=== PATIENT | male | born 2000 | race African-American/Black ===

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

== ENCOUNTER 2022-12-05 18:29 | Emergency (ER) | payer OTHER ==
[2022-12-05] MEDS ORDERED: FAMOTIDINE 20 MG/2 ML VIAL IV STA (18:33)
[2022-12-05] MEDS ORDERED: methylPREDNISolone SOD SUCCI 125 MG/2 ML VIAL IV STA (18:33)
--- NOTE | 2022-12-05 18:36 | ED ---
General Adult HPI - General Chief complaint: Allergic Reaction Stated complaint: Allergic Reaction Time Seen by Provider: 12/05/22 18:33 Source: patient, EMS, RN notes reviewed Mode of arrival: EMS Limitations: no limitations - History of Present Illness Initial comments: Patient is a pleasant 22-year-old male presenting to the emergency department with concern for ALLERGIC reaction. Patient questions if it is something he has a however is unable to identify any new exposures. Patient denies any new medications. Patient feels his tongue is swollen. Patient arrives by ambulance. EMS did provide 50 mg of Benadryl prior to arrival. - Related Data Home Medications Medication Instructions Recorded Confirmed No Known Home Medications 12/05/22 12/05/22 Allergies Allergy/AdvReac Type Severity Reaction Status Date / Time aripiprazole [From Abilify] Allergy Unknown Verified 12/05/22 19:22 clonidine Allergy Swelling Verified 12/05/22 19:22 olanzapine [From Zyprexa] Allergy Unknown Verified 12/05/22 19:22 Review of Systems ROS Statement: Those systems with pertinent positive or pertinent negative responses have been documented in the HPI. ROS Other: All systems not noted in ROS Statement are negative. Constitutional: Denies: fever Eyes: Denies: as per HPI ENT: Reports: other (Patient feels his tongue is swollen). Denies: ear pain Respiratory: Denies: dyspnea Cardiovascular: Denies: chest pain Endocrine: Denies: fatigue Gastrointestinal: Denies: abdominal pain Genitourinary: Denies: dysuria Musculoskeletal: Denies: back pain Skin: Denies: rash Past Medical History Past Medical History: No Reported History History of Any Multi-Drug Resistant Organisms: None Reported Past Surgical History: No Surgical Hx Reported Past Psychological History: ADD/ADHD, Anxiety Smoking Status: Never smoker Past Alcohol Use History: None Reported Past Drug Use History: None Reported General Exam Limitations: no limitations General appearance: alert Head exam: Present: normocephalic Eye exam: Present: normal appearance ENT exam: Present: other (Patient protects his tongue out of his mouth. Patient was able to put his tongue back inside his mouth and talk like normal. No obvious edema. No edema of the eyes or lips.) Neck exam: Present: normal inspection Respiratory exam: Present: normal lung sounds bilaterally. Absent: respiratory distress, wheezes Cardiovascular Exam: Present: regular rate, normal rhythm GI/Abdominal exam: Present: soft. Absent: tenderness Extremities exam: Present: normal inspection Neurological exam: Present: alert Psychiatric exam: Present: normal affect, normal mood Skin exam: Present: normal color Course Vital Signs 12/05/22 12/05/22 12/05/22 18:30 18:32 19:16 Pulse Rate 73 78 Respiratory 18 20 16 Rate Blood Pressure 142/91 115/72 O2 Sat by Pulse 99 99 Oximetry - Reevaluation(s) Reevaluation #1: 12/05/22 18:45 Patient reevaluated and symptom-free. No uvula edema. Medical Decision Making - Medical Decision Making Was pt. sent in by a medical professional or institution (, [facility], FRONT OFFICE JAVA DEVELOPER, urgent ca re, hospital, or skilled nursing...) When possible be specific @ -No Did you speak to anyone other than the patient for history (EMS, parent, family, police, friend...)? What history was obtained from this source @ -Patient arrives by EMS and helps provide history including medications provided Did you review nursing and triage notes (agree or disagree)? Why? @ -I reviewed and agree with nursing and triage notes Were old charts reviewed (outside hosp., previous admission, EMS record, old EKG, old radiological studies, urgent care reports/EKG's, skilled nursing records)? Report findings @ -No old charts were reviewed Differential Diagnosis (chest pain, altered mental status, abdominal pain women, abdominal pain men, vaginal bleeding, weakness, fever, dyspnea, syncope, headache, dizziness, GI bleed, back pain, seizure, CVA, palpatations, mental health)? @ -not applicable EKG interpreted by me (3pts min.). @ -As above X-rays interpreted by me (1pt min.). @ -None done CT interpreted by me (1pt min.). @ -None done U/S interpreted by me (1pt. min.). @ -None done What testing was considered but not performed or refused? (CT, X-rays, U/S, labs)? Why? @ -None What meds were considered but not given or refused? Why? @ -None Did you discuss the management of the patient with other professionals (professionals i.e. [facility] Willoughby, FRONT OFFICE JAVA DEVELOPER, lab, RT, psych nurse, social media executive, heat treating bluer, teacher, chief security and safety officer, returned case inspector)? Give summary @ -No Was smoking cessation discussed for >3mins.? @ -No Was critical care preformed (if so, how long)? @ -No Were there social determinants of health that impacted care today? How? (Homelessness, low income, unemployed, alcoholism, drug addiction, transportation, low edu. Level, literacy, decrease access to med. care, penitentiary, rehab)? @ -No Was there de-escalation of care discussed even if they declined (Discuss DNR or withdrawal of care, Hospice)? DNR status @ -No What co-morbidities impacted this encounter? (DM, HTN, Smoking, COPD, CAD, Cancer, CVA, ARF, Chemo, Hep., AIDS, mental health diagnosis, sleep apnea, morbid obesity)? @ -None Was patient admitted / discharged? Hospital course, mention meds given and r oute, prescriptions, significant lab abnormalities, going to OR and other pertinent info. @ -Patient presents with concern for ALLERGIC reaction. Patient has an odd presentation and appears able to overcome his symptoms. Patient symptoms resolved within minutes of receiving medication which is also not typical of ALLERGIC reaction. Patient remained symptom-free when reevaluated twice. Patient is safe for discharge and recommended to keep up with Benadryl for the next 5 days. Undiagnosed new problem with uncertain prognosis? @ -No Drug Therapy requiring intensive monitoring for toxicity (Heparin, Nitro, Insulin, Cardizem)? @ -No Were any procedures done? @ -No Diagnosis/symptom? @ -ALLERGIC reaction Acute, or Chronic, or Acute on Chronic? @ -Acute Uncomplicated (without systemic symptoms) or Complicated (systemic symptoms)? @ -default Side effects of treatment? @ -No Exacerbation, Progression, or Severe Exacerbation? @ -No Poses a threat to life or bodily function? How? (Chest pain, [place], AR, pneumonia, PE, COPD, DKA, ARF, appy, cholecystitis, CVA, Diverticulitis, Homicidal, Suicidal, threat to staff... and all critical care pts) @ -No Disposition Clinical Impression: Allergic reaction Disposition: HOME SELF-CARE Condition: Stable Instructions (If sedation given, give patient instructions): Allergies (ED) Additional Instructions: Continue [id number] Benadryl for the next 5 days. Please do follow-up with your primary care physician in the next day or 2 for recheck. Return for difficulty breathing, swelling of the face or lips or tongue or throat, worsening symptoms or any other concerns. Is patient prescribed a controlled substance at d/c from ED?: No Referrals: Adolfo Robles MD [STAFF PHYSICIAN] - 1-2 days Time of Disposition: 19:33
[2022-12-05 19:17] VITALS: RESP 16
[2022-12-05 19:39] VITALS: BP 112/78; PULSE 76; TEMP 98.1
== END 2022-12-05 19:39 | disposition home or self-care (01) ==
LOC: EC 18:29
DX: K14.3 Hypertrophy of tongue papillae (principal); T45.0X5A Adverse effect of antiallergic and antiemetic drugs, initial encounter; Z88.8 Allergy status to other drugs, medicaments and biological substances; Z86.59 Personal history of other mental and behavioral disorders
CPT/HCPCS: 99284; 96374; 96375; J2930

== ENCOUNTER 2024-01-27 02:58 | Emergency (ER) | payer OTHER ==
[2024-01-27 03:03] VITALS: RESP 18
[2024-01-27] MEDS: IBUPROFEN 600 MG TAB PO STA (04:30)
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
--- NOTE | 2024-01-27 05:11 | CT ---
EXAM: CT Head and Maxillofacial Without Intravenous Contrast CLINICAL HISTORY: ITS.REASON CT Reason: mandible pain TECHNIQUE: Axial computed tomography images of the head/brain and face without intravenous contrast. CTDI is 45 mGy and DLP is 1341 mGy-cm. This CT exam was performed using one or more of the following dose reduction techniques: automated exposure control, adjustment of the mA and/or kV according to patient size, and/or use of iterative reconstruction technique. COMPARISON: No relevant prior studies available. FINDINGS: Bones/joints: Age indeterminate left nasal bone fracture. Soft tissues: No acute findings. Sinuses: Maxillary sinus air-fluid levels. Mastoid air cells: No mastoid effusion. Orbits: Unremarkable. IMPRESSION: 1. Age indeterminate left nasal bone fracture. 2. Mandible intact. 3. Maxillary sinus air-fluid levels.
--- NOTE | 2024-01-27 05:11 | CT ---
EXAM: CT Head Without Intravenous Contrast CLINICAL HISTORY: ITS.REASON CT Reason: mandible pain TECHNIQUE: Axial computed tomography images of the head/brain without intravenous contrast. CTDI is 45.2 mGy and DLP is 1341 mGy-cm. This CT exam was performed using one or more of the following dose reduction techniques: automated exposure control, adjustment of the mA and/or kV according to patient size, and/or use of iterative reconstruction technique. COMPARISON: No relevant prior studies available. FINDINGS: Brain: No hemorrhage or mass effect. Ventricles: No hydrocephalus. Bones/joints: Age indeterminate left nasal bone fracture. Soft tissues: Unremarkable. IMPRESSION: No acute hemorrhage, hydrocephalus, or mass effect. Age indeterminate left nasal bone fracture.
[2024-01-27 05:50] VITALS: BP 121/73; PULSE 89; TEMP 98.1
== END 2024-01-27 05:50 | disposition home or self-care (01) ==
LOC: EC 02:58
DX: S02.2XXA Fracture of nasal bones, initial encounter for closed fracture (principal); F17.200 Nicotine dependence, unspecified, uncomplicated; Z88.8 Allergy status to other drugs, medicaments and biological substances; Y04.0XXA Assault by unarmed brawl or fight, initial encounter
CPT/HCPCS: 70450; 70486; 99285

== ENCOUNTER 2024-02-13 23:02 | Emergency (ER) | payer OTHER ==
[2024-02-13] MEDS ORDERED: predniSONE 20 MG TAB ONE (23:47)
== END 2024-02-14 15:25 | disposition home or self-care (01) ==
LOC: EC 23:02
DX: L29.9 Pruritus, unspecified (principal)
CPT/HCPCS: 99283

== ENCOUNTER 2024-09-10 02:19 | Emergency (ER) | payer OTHER ==
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
[2024-09-10 03:15] VITALS: RESP 18
--- NOTE | 2024-09-10 04:28 | XR ---
EXAM: XR Left Ankle Complete, 3 or More Views CLINICAL HISTORY: ITS.REASON XR Reason: pain TECHNIQUE: Frontal, lateral and oblique views of the left ankle. COMPARISON: Left ankle radiographs on 08/02/2024 FINDINGS: Bones/joints: No displaced fracture or dislocation identified. Ankle mortise is intact. Probable small bone island in the distal left tibia. Soft tissues: Soft tissue swelling. No radiopaque foreign body identified. IMPRESSION: No displaced fracture or dislocation identified.
[2024-09-10 06:43] VITALS: BP 109/66; PULSE 62; TEMP 97.9
== END 2024-09-10 07:05 | disposition home or self-care (01) ==
LOC: EC 02:19
DX: S93.402A Sprain of unspecified ligament of left ankle, initial encounter (principal); F17.200 Nicotine dependence, unspecified, uncomplicated; Z88.8 Allergy status to other drugs, medicaments and biological substances; X50.9XXA Other and unspecified overexertion or strenuous movements or postures, initial encounter; Y92.480 Sidewalk as the place of occurrence of the external cause
CPT/HCPCS: 99283

== ENCOUNTER 2024-10-24 00:04 | Inpatient (IN) | payer MEDICAID, OTHER ==
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
[2024-10-24] MEDS: NICOTINE 14MG/24HR PATCH TRANSDERM STA (05:08)
[2024-10-24 06:41] LABS: Amphetamine Screen,Urine Not Detected (NotDetected); Barbiturate Screen,Urine Not Detected (NotDetected); Benzodiazepines Screen,Urine Not Detected (NotDetected); Cocaine Screen,Urine Not Detected (NotDetected); Methadone Screen, Urine Not Detected (NotDetected); Opiate Screen,Urine Not Detected (NotDetected); Oxycodone Screen, Urine Not Detected (NotDetected); Phencyclidine Screen,Urine Not Detected (NotDetected); Tricyclic Antidepressant,Urine Not Detected (NotDetected); Urn Cannabinoid Scrn Detected (NotDetected)
[2024-10-24] MEDS ORDERED: ACETAMINOPHEN TAB 325 MG TAB PO PRN (06:46)
[2024-10-24] MEDS ORDERED: haloperidoL 5 MG TAB PO PRN (06:46)
[2024-10-24] MEDS ORDERED: MAGNESIUM HYDROXIDE 2,400 MG/30 ML CUP PO PRN (06:46)
[2024-10-24] MEDS ORDERED: HALOPERIDOL LACTATE 5 MG/ML 1 ML VIAL IM PRN (06:46)
[2024-10-24] MEDS ORDERED: LORazepam 2 MG/ML INJ IM PRN (06:46)
[2024-10-24] MEDS: NICOTINE 14MG/24HR PATCH TRANSDERM SCH (08:27)
[2024-10-24] MEDS: LORazepam 1 MG TAB PO PRN (08:28)
[2024-10-24] MEDS: MAG HYDROX/AL HYDROX/SIMETH 355 ML BOTTLE PO PRN (10:47)
--- NOTE | 2024-10-24 11:52 | P.HP ---
Psychiatric H&P - . H&P Date: 10/24/24 History & Physical: Allergies Allergy/AdvReac Type Severity Reaction Status Date / Time aripiprazole from Abilify Allergy Dystonia Verified 10/24/24 06:29 asenapine from Saphris Allergy Anaphylaxis Verified 10/24/24 06:28 clonidine Allergy Swelling Verified 10/24/24 00:16 olanzapine from Zyprexa AdvReac Weight Gain Verified 10/24/24 06:28 Vital Signs Temp 98.1 F 10/24/24 08:31 Pulse 102 H 10/24/24 08:31 Resp 16 10/24/24 08:31 BP 132/75 10/24/24 08:31 Pulse Ox 95 10/24/24 08:31 FiO2 Intake & Output 10/23/24 10/24/24 10/24/24 18:59 06:59 18:59 Weight 90.718 kg 82 kg Laboratory Last Values Urine Opiates Screen Not Detected (NotDetected) 10/24/24 05:17 Ur Oxycodone Screen Not Detected (NotDetected) 10/24/24 05:17 Urine Methadone Screen Not Detected (NotDetected) 10/24/24 05:17 Ur Barbiturates Screen Not Detected (NotDetected) 10/24/24 05:17 U Tricyclic Antidepress Not Detected (NotDetected) 10/24/24 05:17 Ur Phencyclidine Scrn Not Detected (NotDetected) 10/24/24 05:17 Ur Amphetamines Screen Not Detected (NotDetected) 10/24/24 05:17 U Methamphetamines Scrn Not Detected (NotDetected) 10/24/24 05:17 U Benzodiazepines Scrn Not Detected (NotDetected) 10/24/24 05:17 Urine Cocaine Screen Not Detected (NotDetected) 10/24/24 05:17 U Marijuana (THC) Screen Detected (NotDetected) H 10/24/24 05:17 SARS-CoV-2 (PCR) Not Detected (Not Detectd) 10/24/24 03:24 10/24/24 11:45 IDENTIFYING DATA: Patient is a 24 yo -Banglades[place] male, currently homeless single has no kids unemployed HPI: Patient presented to the hospital yesterday was evaluated by EPS and as per note "pt was attempting to elope, was refusing to answer abstract writer's questions and would reply "why", "let me go". Patient was restrained at approx 0200. Tetryl Blender Operator attempted to assess patient again while pt was still in restraints. Pt brought in by police on petition. Petitiont states "Leonard was found walking in the street after walking inside a strangers house at [address] who called. Leonard said he was seeing 'light' and said his brain was bleeding. When asking Leonard questions he would sit there with a blank stare on his face. Pt is guarded and appears to be thought blocking at times with a slow to respond at certain times. Pt did give permission for the abstract writer to contact pt mother. Tetryl Blender Operator spoke with pt mother Aaliyah. Pt mother states she has not seen him recently and they do not have much of a relationship. Pt mother states he is homeless, and has no motivation to do good. Pt mother states pt [facility] [place] [facility] a child and at times had a court collections officer through [facility]. Pt did admit to abstract writer he sees "my girls' shadow". During assessments pt has what appears involuntary movement with mouth and tongue clicking. 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 Pt is closed with [facility] with last visit in December 2022. Unable to verify if pt is SI,HI, or delusional thought process at pt refusing to speak to abstract writer." Patient was seen wandering the halls responding to internal stimuli. He was agreeable to speak to abstract writer briefly. He was mainly illogical and his responses was a poor historian. Claims that he was "seeing things" and describes seeing "different shapes all over the place". Claims that he is picked up that by the police and he does not know why. He believes that he does not need treatment was fairly superficial, denies any issues with anxiety depression. He only answered some questions, states that he is homeless and he has been through mental health treatment in the past, is not taking any current medications at this time. He was attempting to elope yesterday from the ER, was aggressive with a patient on the unit this morning. Claims that he is sleeping well, appetite is fair. Patient denies any suicidal or homicidal ideations intent or plan. At this time patient denies any auditory or visual hallucinations. Admits to using marijuana and cigarettes. Denies any other recreational drug use PAST PSYCHIATRIC HISTORY: Patient has a history of psychosis and other mental health concern. Patient denies being on any psychiatric medications. Claims that he was admitted to [facility] several times when he was a child. Patient denies any psychiatric outpatient follow-up. Patient is closed at [facility]. He was last seen in December [address] Garcia, noted to have ADHD and generalized anxiety disorder patient denies any history of suicide attempts in the past. PMH: as per ER note ALLERGIES: as per EMR CHEMICAL DEPENDENCY HISTORY: as per HPI FAMILY PSYCHIATRIC/SUBSTANCE USE HISTORY: Denies SOCIAL HISTORY: Patient was born and raised locally, gave very vague history about his upbringing, he is currently homeless has no kids unemployed. Denied any legal issues MENTAL STATUS EXAM: General Appearance: Patient appears to be short, mildly overweight, has dreaded hair, wearing hospital gown, stated age is alert, responding to internal stimuli, minimally cooperative. Patient appears to have poor hygiene and grooming. Behavior: Patient is seated without any agitated behavior. Responding to internal stimuli, minimally cooperative Speech: Patient's speech is fluent and nonpressured. [place] Mood/Affect: Patient reports their mood is "okay", affect is congruent and constricted. Suicidality/Homicidality: Patient denies having any homicidal ideation intent or plan. Denies any suicidal ideations intent or plan Perceptions: Patient denies any visual hallucinations and denies any auditory hallucinations Though content/process: Thought processes illogical, loose associations, poor insight does not believe he needs help or treatment Memory and concentration: AOX3, grossly intact for the purposes of this session. Can spell "WORLD" backwards Judgment and insight: Poor/impulsive STRENGTHS/WEAKNESSES: strength is that patient is resilient. Weakness is that patient has poor judgment and is impulsive and is currently homeless INTELLECT: Average IMPRESSIONS: Psychosis unspecified, rule out substance-induced psychotic disorder versus schizophrenia versus schizoaffective disorder Cannabis use disorder Homelessness Nicotine dependence PLAN: -Patient is admitted under voluntary status to MHU for stabilization of psychiatric symptoms and safety. Patient has not signed adult voluntary form and has not signed medication consent and is placed in patient's chart. A second certification was completed and along with petition will be filed for court. -Medications : Invega 3 mg p.o. daily for mood stabilization/psychosis, trazodone 50 mg nightly for insomnia/mood. -Ativan and Haldol PRN for agitation/aggression Will offer patient subtance use rehab once patient clears more psychiatrically -Patient was informed of the risks, benefits and side effects of the medications . Patient did not signed med consent form and was placed in chart. Patient was offered medication information and declined it -Internal Medicine consult to perform medical evaluation and physical. -NRT -nicotine patch -SW on board for discharge planning. Encourage patient to participate in groups to work on coping skills. Will await deferral and court date.
[2024-10-24] MEDS: PALIPERIDONE 3 MG TAB.ER.24 PO SCH (12:08)
[2024-10-24] MEDS: NICOTINE GUM (POLACRILEX) 2 MG GUM BUCCAL PRN (15:29)
[2024-10-24] MEDS: traZODone HCL 50 MG TAB PO SCH (20:38)
[2024-10-25 10:09] LABS: Basophils # (A) 0.01 10*3/uL (0.00-0.10); Basophils % (A) 0.2 %; Eosinophils # (A) 0.06 10*3/uL (0.04-0.35); Eosinophils % (A) 1.1 %; HCT 45.2 % (39.6-50.0); HGB 15.5 g/dL (13.0-17.0); Lymphocytes % (A) 34.3 %; MCH 29.9 pg (27.0-32.0); MCHC 34.3 g/dL (32.0-37.0); MCV 87.1 fL (80.0-97.0); Mean Platelet Volume 9.2 fL (9.5-12.2); Monocytes # (A) 0.55 10*3/uL (0.20-1.00); Monocytes % (A) 10.5 %; Neutrophils # (A) 2.82 10*3/uL (1.80-7.70); Neutrophils % (A) 53.7 %; Platelet Count 187 10*3/uL (140-440); RBC 5.19 10*6/uL (4.40-5.60); RDW 12.6 % (11.5-14.5); WBC 5.25 10*3/uL (4.50-10.00)
[2024-10-25 10:24] LABS: ALT 39 U/L (4-49); AST 35 U/L (17-59); African American GFR (CKD) >90 (>60 ml/min/1.73 sqM); Albumin 4.3 g/dL (3.5-5.0); Alkaline Phosphatase 50 U/L (38-126); Anion Gap 10 mmol/L; Blood Urea Nitrogen 11 mg/dL (9-20); Calcium 9.6 mg/dL (8.4-10.2); Carbon Dioxide 27 mmol/L (22-30); Chloride 102 mmol/L (98-107); Glucose 97 mg/dL (74-99); Non-African American GFR(CKD) >90 (>60 ml/min/1.73 sqM); Sodium 139 mmol/L (137-145); Total Bilirubin 0.4 mg/dL (0.2-1.3); Total Protein 6.8 g/dL (6.3-8.2)
--- NOTE | 2024-10-25 11:25 | P.PN ---
Progress Note - Text Progress Note Date: 10/25/24 Interval history: Patient was seen today for psychiatric follow-up. He was laying in bed today, appears to be tired. Has been taking his medications. Claims that he slept well last night. Has not been going to many groups. Continues to be fairly concrete, less responding to internal stimuli today, less bizarre. Not endorsing any paranoia today. Claims that he has been eating well, not reporting any other side effects. Was fairly focused on discharge continues to have very poor insight poor judgment. Denying any auditory or visual hallucinations denies any suicidal homicidal ideations intent or plan. MENTAL STATUS EXAM: General Appearance: Patient appears to be short, mildly overweight, has dreaded hair, stated age is alert, less responding to internal stimuli, more cooperative today. Patient appears to have mildly improving hygiene and grooming. Behavior: Patient is laying in bed without any agitated behavior. Less responding to internal stimuli. More cooperative today Speech: Patient's speech is fluent and nonpressured. [place], improving mildly Mood/Affect: Patient reports their mood is "fine", affect is congruent and constricted. Suicidality/Homicidality: Patient denies having any homicidal ideation intent or plan. Denies any suicidal ideations intent or plan Perceptions: Patient denies any visual hallucinations and denies any auditory hallucinations Though content/process: Thought processes illogical, more goal oriented today. Fairly superficial insight. No paranoia today. Focused on discharge Memory and concentration: AOX3, grossly intact for the purposes of this session Judgment and insight: Poor, improving mildly IMPRESSIONS: Psychosis unspecified, rule out substance-induced psychotic disorder versus schizophrenia versus schizoaffective disorder Cannabis use disorder Homelessness Nicotine dependence PLAN: -Patient is admitted under voluntary status to MHU for stabilization of psychiatric symptoms and safety. Patient has not signed adult voluntary form and has not signed medication consent and is placed in patient's chart -Medications : Change Invega 3 mg p.o. nightly for mood stabilization/psychosis, trazodone 50 mg nightly for insomnia/mood. -Ativan and Haldol PRN for agitation/aggression Patient is declining rehab at this time. -NRT -nicotine patch -SW on board for discharge planning. Encourage patient to participate in groups to work on coping skills. Will await deferral and court date.
[2024-10-25 15:36] LABS: Chol/HDL Ratio 4.76 Ratio; LDL Cholesterol,Calculated 113.7 mg/dL (0.0-131.0)
--- NOTE | 2024-10-26 05:25 | P.MDCNMH ---
History of Present Illness H&P Date: 10/26/24 24 year old male brought in by police due to odd behavior as he was walking the streets asking for ambulance, he admitted later to using drugs he denies any fever, chills, cough, sore throat, chest pain , trouble breathing , nausea , vomiting, abd pain , changes in urinary or bowel habits. he denies smoking and alcohol he feels better and asking when he can leave review of systems Pertinent positives as noted in HPI. All other systems were reviewed and are negative on exam Constitutional: No acute distress, conversant, pleasant Eyes: Anicteric sclerae, moist conjunctiva, Pupils equal round reactive to light ENMT: NC/AT Oropharynx clear, no erythema, or exudates Lungs: Clear to auscultation Clear to percussion Normal respiratory effort, no accessory muscle use Cardiovascular: Heart regular in rate and rhythm, No murmurs, gallops, or rubs No peripheral edema Abdominal: Soft Nontender, no guarding, rebound or rigidity Abdomen moving with respiration Normoactive bowel sounds Extremities: No digital cyanosis No clubbing Pedal pulses intact and symmetrical Radial pulses intact and symmetrical No calf tenderness Psychiatric: Alert and oriented to person, place and time Appropriate affect fair judgement Neuro Muscles Strength 5/5 in all 4 extremities Sensation to light touch grossly present throughout Cranial nerves II-XII grossly intact Past Medical History Past Medical History: No Reported History History of Any Multi-Drug Resistant Organisms: None Reported Past Surgical History: No Surgical Hx Reported Past Psychological History: ADD/ADHD, Anxiety Smoking Status: Vaper Past Alcohol Use History: None Reported Past Drug Use History: None Reported Medications and Allergies Home Medications Medication Instructions Recorded Confirmed Type No Known Home Medications 12/05/22 10/24/24 History Allergies Allergy/AdvReac Type Severity Reaction Status Date / Time aripiprazole [From Abilify] Allergy Anaphylaxis Verified 10/24/24 18:08 asenapine [From Saphris] Allergy Anaphylaxis Verified 10/24/24 06:28 clonazepam Allergy Anaphylaxis Verified 10/24/24 18:08 clonidine Allergy Anaphylaxis Verified 10/24/24 18:08 olanzapine [From Zyprexa] AdvReac Weight Gain Verified 10/24/24 06:28 Physical Exam Vitals: Vital Signs Temp Pulse Resp BP Pulse Ox 10/25/24 21:00 98 F 75 18 100 10/25/24 09:00 97.8 F 63 16 106/61 98 Intake and Output 10/25/24 10/25/24 10/26/24 14:59 22:59 06:59 Other: Weight 82 kg Cranial Nerve Examination - Cranial Nerves Cranial Nerve II- Optic: Intact Cranial Nerve III- Oculomotor: Intact Cranial Nerve IV- Trochlear: Intact Cranial Nerve V- Trigeminal: Intact Cranial Nerve - Abducens: Intact Cranial Nerve VII- Facial: Intact Cranial Nerve VIII- Auditory: Intact Cranial Nerve IX- Glossopharyngeal: Intact Cranial Nerve X- Vagus: Intact Cranial Nerve XI- Accessory: Intact Cranial Nerve XII- Hypoglossal: Intact Results CBC & Chem 7: 10/25/24 09:26 10/25/24 09:26 Labs: Abnormal Lab Results - Last 24 Hours (Table) 10/25/24 10/25/24 Range/Units 09:26 09:26 MPV 9.2 L (9.5-12.2) fL Triglycerides 245.00 H (0.00-149.00) mg/dL Cholesterol 206.00 H (0.00-200.00) mg/dL VLDL Cholesterol, Calc 49.00 H (5.00-40.00) mg/dL Assessment and Plan Assessment: marijuana abuse counseled to quit drug of abuse labs reviewed and unremarkable stable from medical stand point thank you for this consult
[2024-10-26] MEDS ORDERED: LORazepam 1 MG TAB PO PRN (10:59)
--- NOTE | 2024-10-26 11:04 | P.PN ---
Progress Note - Text Progress Note Date: 10/26/24 Interval history: Patient was seen today for psychiatric follow-up. Patient was wandering the [employer] after group today. Claims that he has been taking the medications reports no significant issues at this time. He appears to have improvement in his concentration and not responding to internal stimuli today. We spoke about the option for long-acting injection, he states that he is most likely open to this idea. Claims that he has not spoken with the tower director yet for his deferral however is interested in doing that. He was asking about potential discharge. Claims that his mood and anxiety been mildly improving since yesterday. Has been eating well, claims that he slept fairly last night. Continues to have poor insight poor judgment, however this is improving mildly. Denying any auditory or visual hallucinations denies any suicidal homicidal ideations intent or plan. MENTAL STATUS EXAM: General Appearance: Patient appears to be short, mildly overweight, has dreaded hair, stated age is alert, not responding to internal stimuli, more cooperative today. Patient appears to have mildly improving hygiene and grooming. Behavior: Patient is laying in bed without any agitated behavior. not responding to internal stimuli. More cooperative today Speech: Patient's speech is fluent and nonpressured. [place], improving mildly Mood/Affect: Patient reports their mood is "ok", affect is congruent and constricted. Improving mildly Suicidality/Homicidality: Patient denies having any homicidal ideation intent or plan. Denies any suicidal ideations intent or plan Perceptions: Patient denies any visual hallucinations and denies any auditory hallucinations Though content/process: Thought processes is more logical today, Fairly superficial insight. [place]. No paranoia today. Focused on discharge Memory and concentration: AOX3, grossly intact for the purposes of this session Judgment and insight: Poor, improving mildly IMPRESSIONS: Psychosis unspecified, rule out substance-induced psychotic disorder versus schizophrenia versus schizoaffective disorder Cannabis use disorder Homelessness Nicotine dependence PLAN: -Patient is admitted under voluntary status to MHU for stabilization of psychiatric symptoms and safety. Patient has not signed adult voluntary form and has not signed medication consent and is placed in patient's chart -Medications : Invega 3 mg p.o. nightly for mood stabilization/psychosis, trazodone 50 mg nightly for insomnia/mood. Patient claims that he is open to receiving long-acting injection prior to discharge. Will likely give Uzedy this weekend or early next week once patient is stabilized and has signed deferral. -Ativan and Haldol PRN for agitation/aggression Patient is declining rehab at this time. -NRT -nicotine patch -SW on board for discharge planning. Encourage patient to participate in groups to work on coping skills. Will await deferral and court date. hopeful for discharge early next week
--- NOTE | 2024-10-27 11:34 | P.PN ---
Progress Note - Text Progress Note Date: 10/27/24 Interval history: Patient was seen today for psychiatric follow-up. Patient was wandering the h allways, was seen responding to internal stimuli's talking to himself. He appears to have improvement in hygiene and grooming today. He was able to go to groups after participate in activities. Claims that he has been doing a bit better. Continues to be fairly focused on discharge poor insight mildly improving. Has been taking his medications not reporting any side effects or issues. Claims that he slept on and off last night. We spoke about transitioning onto a long-acting injection to help ensure compliance patient was agreeable to this. Will give loading dose of Invega Sustenna today spoke about the benefits versus the risks and side effects he was agreeable to this. Claims that he has not met with his senior trial attorney at but is planning on signing a deferral. Claims that his mood and anxiety been mildly improving since yesterday. Has been eating well. Denying any auditory or visual hallucinations denies any suicidal homicidal ideations intent or plan. MENTAL STATUS EXAM: General Appearance: Patient appears to be short, mildly overweight, has dreaded hair, stated age is alert, more cooperative today. Patient appears to have mildly improving hygiene and grooming. Behavior: Patient is laying in bed without any agitated behavior. responding to internal stimuli observed in the hallways earlier today. More cooperative today Speech: Patient's speech is fluent and nonpressured. [place], improving mildly Mood/Affect: Patient reports their mood is "good", affect is congruent and constricted. Improving mildly Suicidality/Homicidality: Patient denies having any homicidal ideation intent or plan. Denies any suicidal ideations intent or plan Perceptions: Patient denies any visual hallucinations and denies any auditory hallucinations Though content/process: Thought processes is more logical today, Fairly superficial insight. [place]. No paranoia today. Focused on discharge Memory and concentration: AOX3, grossly intact for the purposes of this session Judgment and insight: Poor, improving mildly IMPRESSIONS: Psychosis unspecified, rule out substance-induced psychotic disorder versus schizophrenia versus schizoaffective disorder Cannabis use disorder Homelessness Nicotine dependence PLAN: -Patient is admitted under voluntary status to MHU for stabilization of psychiatric symptoms and safety. Patient has not signed adult voluntary form and has not signed medication consent and is placed in patient's chart -Medications : Invega 3 mg p.o. for two more doses then dc PO, patient claims that he would be agreeable to take [facility] will give Invega sustenna loading dose 234 mg IM today and second dose of 156 mg IM on wednesday am prior to dc, monthly miantnenance dose will be 117 mg IM will be due 1 month after second dose. trazodone 50 mg nightly for insomnia/mood. -Ativan and Haldol PRN for agitation/aggression Patient is declining rehab at this time. -NRT -nicotine patch -SW on board for discharge planning. Encourage patient to participate in groups to work on coping skills. Will await deferral and court date. hopeful for discharge early next week wednesday or wednesday after patient is transitioned onto [facility].
[2024-10-27] MEDS: PALIPERIDONE IM 234 MG/1.5 ML SYG IM STA (14:05)
[2024-10-27] MEDS: diphenhydrAMINE 50 MG/ML 1 ML VIAL IM STA (15:32)
[2024-10-27] MEDS ORDERED: PALIPERIDONE 3 MG TAB.ER.24 PO ONE (21:00)
[2024-10-27] MEDS: IBUPROFEN 600 MG TAB PO PRN (21:21)
[2024-10-28] MEDS: PALIPERIDONE 3 MG TAB.ER.24 PO ONE (08:33)
[2024-10-28] MEDS ORDERED: PALIPERIDONE 3 MG TAB.ER.24 PO SCH (09:00)
--- NOTE | 2024-10-28 13:20 | P.PN ---
Progress Note - Text Progress Note Date: 10/28/24 Interval History: Patient was seen wandering the hallways and was directable and agreeable to taqueria soto with feature writer in the office. I was contacted in the evening about the patient's tongue being swollen. The patient was given a one-time shot of Benadryl 50 mg and it is noted that this resolved. Speaking with the patient today he denies any additional tongue swelling. Patient was somewhat disorganized in his response. When asking him if his brain was bleeding he notes no but in the past it has due to people "cutting him off". He has assimilated that into his "soul bleeding". He notes that he has depression but then changed his mind noting that he has anxiety. He notes that he is strug gling with concentration and displayed jumping from 1 subject to another. He notes that his sleep was good last night as well as his energy. He denies any problems with appetite.. At this time patient denies any suicidal or homical ideations, intent or plan. Patient denies any side effects from the medications and has been compliant with meds. Mental Status Exam: General Appearance: Patient appears to be stated age is alert, directable, and cooperative. Behavior: The patient was slightly anxious and mildly guarded Speech: Patient's speech is fluent and nonpressured. Mood/Affect: Mood is improving mildly, affect is congruent and constricted. Suicidality/Homicidality: Patient denies having any suicidal or homicidal ideation intent or plan. Perceptions: Patient denies any visual hallucinations and denies any auditory hallucinations Though content/process: The patient was having some delusional thoughts and displayed some derailment in thought process Memory and concentration: AOX3, grossly intact for the purposes of this session Judgment and insight: Improving mildly Diagnosis: Psychosis unspecified, rule out substance-induced psychotic disorder versus schizophrenia versus schizoaffective disorder Cannabis use disorder Homelessness Nicotine dependence Assessment: The patient is presenting with disorganized thoughts and delusional beliefs. Per reviewing notes it appears to be better. There appeared to be an incident where the patient noted that his tongue was swelling nursing staff is not sure whether this is a reaction to the Invega shot. The patient has another shot due on October 31. Will reevaluate at that point whether to give the shot or not on October 30. Patient's current problems with thinking makes him susceptible to problems being outside of the hospital at this point and continued hospitalization is needed for stabilization. PLAN: -Patient is admitted under voluntary status to MHU for stabilization of psychiatric symptoms and safety. Patient has not signed adult voluntary form and has not signed medication consent and is placed in patient's chart -Medications : Invega sustenna loading dose 234 mg IM 10/27/2024 and second dose of 156 mg IM on 10/31/2024 am prior to dc, monthly miantnenance dose will be 117 mg IM will be due 1 month after second dose. Trazodone 50 mg nightly for insomnia/mood. -Ativan and Haldol PRN for agitation/aggression Patient is declining rehab at this time. -NRT -nicotine patch -SW on board for discharge planning. Encourage patient to participate in groups to work on coping skills. Will await deferral and court date. hopeful for discharge early next week wednesday or wednesday after patient is transitioned onto [facility].
[2024-10-28] MEDS: LORATADINE 10 MG TAB PO STA (13:28)
[2024-10-28] MEDS: LOPERAMIDE 2 MG CAP PO ONE (21:14)
[2024-10-29] MEDS ORDERED: traZODone HCL 100 MG TAB PO PRN (14:36)
--- NOTE | 2024-10-29 14:41 | P.PN ---
Progress Note - Text Progress Note Date: 10/29/24 Interval History: Patient was seen wandering the hallways and was directable and agreeable to taqueria soto with food writer in the office. The patient presented today denying any psychotic symptoms including auditory or visual hallucinations. He notes that he is not paranoid. We discussed the thoughts about his brain bleeding he notes that he no longer has that feeling that his soul is bleeding out. He does note that his arm is sore from the shot. He denies any ongoing depression and notes that his anxiety is centered around getting discharge. He notes that his sleep is fair and notes that he sleeps with the light on because he is scared about being in this environment. He notes that his energy has been up and down. He denies any problems with appetite or concentration. He has been attending groups. At this time patient denies any suicidal or homical ideations, intent or plan. Patient denies any side effects from the medications and has been compliant with meds. Mental Status Exam: General Appearance: Patient appears to be stated age is alert, directable, and cooperative. Behavior: Patient was calm but slightly guarded at times but appeared to be more open to discussing things. Speech: Patient's speech is fluent and nonpressured. Mood/Affect: Mood is improving mildly, affect is congruent and constricted. Suicidality/Homicidality: Patient denies having any suicidal or homicidal ideation intent or plan. Perceptions: Patient denies any visual hallucinations and denies any auditory hallucinations Though content/process: There is no evidence of any delusional thought content and thought process is linear and goal-directed. Memory and concentration: AOX3, grossly intact for the purposes of this session Judgment and insight: Improving mildly Diagnosis: Psychosis unspecified, rule out substance-induced psychotic disorder versus schizophrenia versus schizoaffective disorder Cannabis use disorder Homelessness Nicotine dependence Assessment: The patient appears to be doing well he seems more organized today than yesterday. He is not expressing any delusional thoughts. Anticipated discharge after his second shot. PLAN: -Patient is admitted under voluntary status to [facility] for stabilization of psychiatric symptoms and safety. Patient has not signed adult voluntary form and has not signed medication consent and is placed in patient's chart -Medications : Invega sustenna loading dose 234 mg IM 10/27/2024 and second dose of 156 mg IM on 10/31/2024 am prior to dc, monthly miantnenance dose will be 117 mg IM will be due 1 month after second dose. Increase Trazodone 100 mg nightly for insomnia/mood. -Ativan and Haldol PRN for agitation/aggression Patient is declining rehab at this time. -NRT -nicotine patch -SW on board for discharge planning. Encourage patient to participate in groups to work on coping skills. Will await deferral and court date. hopeful for discharge early next week wednesday or wednesday after patient is transitioned onto [facility].
[2024-10-30 00:27] VITALS: RESP 16
[2024-10-30 08:42] VITALS: BP 117/81; PULSE 86; TEMP 97.8
[2024-10-30] MEDS: PALIPERIDONE IM 156 MG/ML SYG IM ONE (13:31)
--- NOTE | 2024-10-30 13:49 | P.DS ---
Providers Date of admission: 10/24/24 06:42 Admission HPI: Admission note was completed by Dr. Staley "Patient presented to the hospital yesterday was evaluated by EPS and as per note "pt was attempting to elope, was refusing to answer loan underwriter's questions and would reply "why", "let me go". Patient was restrained at approx 0200. Polysomnography Tech attempted to assess patient again while pt was still in restraints. Pt brought in by police on petition. Petitiont states "Leonard was found walking in the street after walking inside a strangers house at [address] who called. Leonard said he was seeing 'light' and said his brain was bleeding. When asking Leonard questions he would sit there with a blank stare on his face. Pt is guarded and appears to be thought blocking at times with a slow to respond at certain times. Pt did give permission for the loan underwriter to contact pt mother. Polysomnography Tech spoke with pt mother Aaliyah. Pt mother states she has not seen him recently and they do not have much of a relationship. Pt mother states he is homeless, and has no motivation to do good. Pt mother states pt [facility] [place] [facility] a child and at times had a classifications officer cc/cm through [facility]. Pt did admit to loan underwriter he sees "my girls' shadow". During assessments pt has what appears involuntary movement with mouth and tongue clicking. 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 Pt is closed with [facility] with last visit in December 2022. Unable to verify if pt is SI,HI, or delusional thought process at pt refusing to speak to loan underwriter." Patient was seen wandering the halls responding to internal stimuli. He was agreeable to speak to loan underwriter briefly. He was mainly illogical and his responses was a poor historian. Claims that he was "seeing things" and describes seeing "different shapes all over the place". Claims that he is picked up that by the police and he does not know why. He believes that he does not need treatment was fairly superficial, denies any issues with anxiety depression. He only answered some questions, states that he is homeless and he has been through mental health treatment in the past, is not taking any current medications at this time. He was attempting to elope yesterday from the ER, was aggressive with a patient on the unit this morning. Claims that he is sleeping well, appetite is fair. P atient denies any suicidal or homicidal ideations intent or plan. At this time patient denies any auditory or visual hallucinations. Admits to using marijuana and cigarettes. Denies any other recreational drug use" Hospital course: Upon admission to the unit patient was admitted involuntarily on a petition and certificate and a second certificate was completed and faxed to the courts. Patient ended up signing a deferral with the attorney recruiter and agreeing to treatment. Patient got along well with other patients on the unit and followed unit protocol. Patient was compliant with the medications and denied any side effects throughout hospital course. Patient was started on Invega sustenna and loaded with 234 mg on 10/27-second dose of 156 was given on 10/31. The patient did have an incident where he had a swollen tongue and was given Benadryl 50 mg IM which resolved fast. Additionally the patient was on Trazodone 50 mg at night for insomnia. Patient spoke of his stressors and engaged in therapy both group and individual. Patient was also seen by medical team for history and physical exam. As the patient's admission progressed it was noted that his psychosis including his "brain bleeds were resolving". Throughout the course of the hospitalization patient gradually improved with regards to mood, anxiety, sleep and returned back to their baseline level of functioning became more future oriented with improved insight and judgment. On the day of discharge patient denied any suicidal or homicidal ideations intent or plan denied any auditory or visual hallucinations. Patient endorsed wanting to live for their health and family. The patient denied any access to guns or weapons. Patient denied any paranoia and did not endorse any delusions. Patient does have a significant hi story of substance abuse and was counseled on abstaining from all substances including alcohol and marijuana. Patient was offered however declined inpatient substance-abuse rehab. Patient was also counseled on the medications and need for regular compliance and was encouraged to follow-up with their outpatient appointment for mental health and also for primary care. Prior to discharge a family meeting will be arranged by forensic social worker to answer any questions and ensure safety upon discharge incuding making sure that guns/weapons are either removed from the home or locked away. Date of discharge patient denied any psychosis including auditory or visual hallucinations. He also did not voice any delusional thoughts like he had been before. He denied any suicidal or homicidal ideations. He denied any depression or anxiety Mental status exam: General Appearance: Patient appears to be his stated age is alert, pleasant, and cooperative. Patient is in no acute distress and has improved hygiene and grooming Behavior: Patient is calmly seated without any agitated behavior. Speech: Patient's speech is fluent and nonpressured. Mood/Affect: Patient reports their mood is "better good", affect is congruent and euthymic. Suicidality/Homicidality: Patient denies having any suicidal or homicidal ideation intent or plan. Perceptions: Patient denies any auditory or visual hallucinations. Though content/process: There is no evidence of any delusional thought content and thought process is linear and goal-directed. More future oriented Memory and concentration: AOX3, grossly intact for the purposes of this session. Can spell "WORLD" backwards correctly. Judgment and insight: Chronically poor, however has improved with guarded prognosis Impression: Psychosis unspecified Cannabis use disorder Homelessness Nicotine dependence Plan: -Continue with discharge today as patient has improved and stabilized psychiatrically and is not currently an imminent threat to themself and/or others. Patient will remain at chronically elevated risk for harm to self and/or others due to their impulsivity and substance abuse. -Continue medications: Invega sustenna loading dose 234 mg IM 10/27/2024 and second dose of 156 mg IM on 10/30/2024 am then monthly miantnenance dose will be 117 mg IM will be due 1 month after second dose next 11/30/2024. -Patient was counseled on the need for medication compliance and appropriate follow-up at mental health and also primary care for medical issues. Patient verbalized understanding and agreed. -Social work to help coordinate patients discharge today arrange for and conduct family meeting to ensure safety upon discharge and answer any questions/concerns. also to ensure safe home environment that guns/weapons are either removed from the home or locked away. Social work also to arrange for patients follow up appointments with [facility] for psychiatric care along with follow up with primary care provider. -Patient counseled on abstaining from recreational drugs and marijuana and alcohol. Was informed/educated on the adverse effects on their physical and mental health. Patient verbally agreed and understood. Patient was offered substance abuse treatment however declined at this time. -Patient was instructed to return to the hospital or seek immediate medical care if their psychiatric or medical symptoms do worsen or reoccur. Expected date of discharge: 10/30/24 Attending physician: Dameon Staley MD Consults: 10/24/24 06:46 Consult Physician Routine Consulting Provider: Mari Du Consult Reason/Comments: H & P Do you want consulting provider notified?: Yes, Notify in am Primary care physician: Stated None Patient Condition at Discharge: Fair Plan - Discharge Summary Discharge Rx Participant: Yes New Discharge Prescriptions: New traZODone HCL [Desyrel] 100 mg PO HS PRN 30 Days #30 tab PRN Reason: Insomnia No Action No Known Home Medications Discharge Medication List No Known Home Medications 12/05/22 [History] traZODone HCL [Desyrel] 100 mg PO HS PRN 30 Days #30 tab 10/30/24 [Rx] Follow up Appointment(s)/Referral(s): [facility] [Outside] - 11/01/24 1:00 pm ([facility] [NON-STAFF] - 1 Week Patient Instructions/Handouts: Psychotic Disorder (DC) Activity/Diet/Wound Care/Special Instructions: Avoid the use of street drugs and alcohol. Take all medications as prescribed. When you are in need of refills on your medications, please contact your medical provider and/or outpatient psychiatrist/provider to have this done. Please go to your scheduled outpatient appointment for aftercare treatment. If symptoms return or become worse, call the crisis line at and/or go to the nearest emergency room for evaluation. National Suicide Hotline [address] [facility] confidentiality statement: "The information contained in this communication, including attachments, is confidential, may be privileged, and is intended only for the use of the named recipient(s). Unauthorized use, disclosure, forwarding or copying is strictly prohibited and may be unlawful. If you have received this communication in error, please notify me IMMEDIATELY at the phone number or pager listed above.
[2024-10-31] MEDS ORDERED: PALIPERIDONE IM 156 MG/ML SYG IM ONE (09:00)
== END 2024-10-30 14:38 | disposition home or self-care (01) | DRG 750 ==
LOC: EC 00:04 → 3MHU 06:42
PROVIDERS: ADMIT Psychiatry & Neurology Psychiatry; ATTEND Psychiatry & Neurology Psychiatry
DX: F29 Unspecified psychosis not due to a substance or known physiological condition (principal); F12.10 Cannabis abuse, uncomplicated; Z71.51 Drug abuse counseling and surveillance of drug abuser; Z11.52 Encounter for screening for COVID-19; F90.9 Attention-deficit hyperactivity disorder, unspecified type; F17.200 Nicotine dependence, unspecified, uncomplicated; F41.1 Generalized anxiety disorder; F31.9 Bipolar disorder, unspecified; G47.00 Insomnia, unspecified; K14.1 Geographic tongue; Z59.00 Homelessness unspecified; Z78.1 Physical restraint status
CPT/HCPCS: 80053; 80061; 80306; 82075; 83036; 84443; 85025; 87635; 99285

== ENCOUNTER 2024-10-31 16:28 | Emergency (ER) | payer OTHER ==
[2024-10-31] MEDS: methylPREDNISolone SOD SUCCI 125 MG/2 ML VIAL IV STA (17:04)
[2024-10-31] MEDS: FAMOTIDINE 20 MG/2 ML VIAL IV STA (17:05)
--- NOTE | 2024-10-31 17:19 | ED ---
Allergic Reaction HPI - General Chief complaint: Allergic Reaction Stated complaint: Allergic Reaction Time Seen by Provider: 10/31/24 16:32 Source: patient, EMS, RN notes reviewed Mode of arrival: EMS Limitations: no limitations - History of Present Illness Initial Comments: This is a 24-year-old male who presents to the emergency department for concerns of an allergic reaction. Patient was discharged from the psychiatric unit here yesterday. He received an Invega sustain injection. States that he has never received this before. Later that day states that he felt like his tongue was swollen for a few minutes. States that he took Benadryl and it resolved. Patient states that this sensation occurred again today and he felt like he could not breathe, prompting his significant other to call EMS. He states that EMS gave him 100mg of Benadryl. However, nursing staff states that what actually happened is they flushed his IV with saline and told him they were going to give him Benadryl. He had thought that the saline they flushed his IV with was the Benadryl, and then said that his symptoms resolved even though Benadryl was not actually given, he only thought that it was. Patient stated that he currently feels fine and has no complaints. Denies any rashes or itching. - Related Data Previous Rx's Medication Instructions Recorded traZODone HCL [Desyrel] 100 mg PO HS PRN 30 Days #30 tab 10/30/24 predniSONE 50 mg PO DAILY 5 Days #5 tab 10/31/24 Allergies Allergy/AdvReac Type Severity Reaction Status Date / Time aripiprazole [From Abilify] Allergy Anaphylaxis Verified 10/31/24 16:44 asenapine [From Saphris] Allergy Anaphylaxis Verified 10/31/24 16:44 clonazepam Allergy Anaphylaxis Verified 10/31/24 16:44 clonidine Allergy Anaphylaxis Verified 10/31/24 16:44 olanzapine [From Zyprexa] AdvReac Weight Gain Verified 10/31/24 16:44 blackened fish AdvReac Unknown Uncoded 10/31/24 16:44 Review of Systems ROS Statement: Those systems with pertinent positive or pertinent negative responses have been documented in the HPI. ROS Other: All systems not noted in ROS Statement are negative. Past Medical History Past Medical History: No Reported History History of Any Multi-Drug Resistant Organisms: None Reported Past Surgical History: No Surgical Hx Reported Past Psychological History: ADD/ADHD, Anxiety Smoking Status: Vaper Past Alcohol Use History: None Reported Past Drug Use History: None Reported General Exam Limitations: no limitations General appearance: alert, in no apparent distress Head exam: Present: atraumatic, normocephalic, normal inspection Eye exam: Present: normal appearance, PERRL, EOMI. Absent: scleral icterus, conjunctival injection, periorbital swelling ENT exam: Present: normal exam, mucous membranes moist, other (No swelling of the tongue) Respiratory exam: Present: normal lung sounds bilaterally. Absent: respiratory distress, wheezes, rales, rhonchi, stridor Cardiovascular Exam: Present: regular rate, normal rhythm Neurological exam: Present: alert, oriented X3, CN II-XII intact Psychiatric exam: Present: normal affect, normal mood Skin exam: Present: warm, dry, intact, normal color. Absent: rash Course Vital Signs 10/31/24 16:38 Temperature 99.1 F Pulse Rate 88 Respiratory 18 Rate Blood Pressure 132/86 O2 Sat by Pulse 96 Oximetry Medical Decision Making - Medical Decision Making This is a 24-year-old male who presents to the emergency department for concerns of an allergic reaction. Was pt. sent in by a medical professional or institution? @ -No Did you speak to anyone other than the patient for history? @ -EMS provided the information about the Benadryl. Did you review nursing and triage notes? @ -Yes, and I agree, it is accurate with regards to the patient's symptoms. Were old charts reviewed? @ -No Differential Diagnosis? @ -Urticaria, angioedema, psychosis, hyperthyroidism, factitious illness, this is not meant to be an all-inclusive list. EKG interpreted by me (3pts min.)? @ -Not obtained X-rays interpreted by me (1pt min.)? @ -Not obtained CT interpreted by me (1pt min.)? @ -Not obtained U/S interpreted by me (1pt. min.)? @ -Not obtained What testing was considered but not performed? (CT, X-rays, U/S, labs)? Why? @ -None What meds were considered but not given? Why? @ -None Did you discuss the management of the patient with other professionals? @ -No Did you reconcile home meds? @ -No Was smoking cessation discussed for >3mins.? @ -No Was critical care preformed (if so, how long)? @ -No Were there social determinants of health that impacted care today? How? (Homelessness, low income, unemployed, alcoholism, drug addiction, transportation, low edu. Level, literacy, decrease access to med. care, snf, rehab)? @ -No Was there de-escalation of care discussed even if they declined? (Discuss DNR or withdrawal of care, Hospice)? @ -No What co-morbidities impacted this encounter? (DM, HTN, Smoking, COPD, CAD, Cancer, CVA, Hep., AIDS, mental health diagnosis, sleep apnea, morbid obesity)? @ -Psychiatric illness Was patient admitted / discharged? @ -Discharged. Physical examination was unremarkable. Patient reports experiencing tongue swelling and shortness of breath prior to arrival that had resolved with Benadryl. However, Benadryl was not actually administered, patient only thought that it was. Solu-Medrol and famotidine administered in the event there was any additional allergic component. However, it would be unlikely that he actually experienced anything given that symptoms resolved on their own within a few minutes and there are no residual symptoms or findings. Prednisone prescribed in the event symptoms recur again, however advised that if they do not he does not need to take them. Also advised [id number] Benadryl. Patient discharged home in stable condition. Case discussed with ED attending Dr. Rendon. Return precautions reviewed in depth, the patient is instructed to return to the emergency department with any new, worsening, or concerning symptoms. Patient verbalized understanding. Undiagnosed new problem with uncertain prognosis? @ -None Drug Therapy requiring intensive monitoring for toxicity (Heparin, Nitro, Insulin, Cardizem)? @ -None Were any procedures done? @ -None Diagnosis/symptom? @ -Concerns of allergic reaction Acute, or Chronic, or Acute on Chronic? @ -Acute Uncomplicated (without systemic symptoms) or Complicated (systemic symptoms)? @ -Uncomplicated Side effects of treatment? @ -None Exacerbation, Progression, or Severe Exacerbation] @ -Not applicable Poses a threat to life or bodily function? @ -No Disposition Clinical Impression: Allergic reaction Disposition: HOME SELF-CARE Instructions (If sedation given, give patient instructions): General Allergic Reaction (ED) Additional Instructions: Return to the emergency department with any new, worsening, or concerning symptoms. Take the prednisone daily for the next 5 days. Continue to take Benadryl if needed as well. Follow up with your primary care provider in 1-2 days. Prescriptions: predniSONE 50 mg PO DAILY 5 Days #5 tab Is patient prescribed a controlled substance at d/c from ED?: No Referrals: None,Stated [Primary Care Provider] - 1-2 days Time of Disposition: 17:20
[2024-10-31 17:35] VITALS: BP 128/80; PULSE 78; RESP 16; TEMP 98.9
== END 2024-10-31 17:34 | disposition home or self-care (01) ==
LOC: EC 16:28
DX: T78.40XA Allergy, unspecified, initial encounter (principal); F17.290 Nicotine dependence, other tobacco product, uncomplicated; Z88.1 Allergy status to other antibiotic agents; Z88.6 Allergy status to analgesic agent; Z91.013 Allergy to seafood; Z88.8 Allergy status to other drugs, medicaments and biological substances; X58.XXXA Exposure to other specified factors, initial encounter
CPT/HCPCS: 99284; 96374; 96375; J2919; J1308

== ENCOUNTER 2025-01-13 20:21 | Inpatient (IN) | payer MEDICAID, OTHER ==
--- NOTE | 2025-01-13 21:05 | ED ---
Psych HPI - General Chief Complaint: Psychiatric Symptoms Stated Complaint: Mental Health, Law Enforcement Petition Time Seen by Provider: 01/13/25 20:29 Source: patient, police, RN notes reviewed Mode of arrival: ambulatory - History of Present Illness Initial Comments: 24-year-old male presents emergency department with chief complaint of psychiatric evaluation. Patient states that he is depressed, suicidal. Patient states he used to self-harm no recent self harming. Denies illicit drug use no alcohol abuse he states he plans to slit his wrist. Patient states there is not use any alcohol today denies any physical plaints otherwise. No daily medications - Related Data Previous Rx's Medication Instructions Recorded traZODone HCL [Desyrel] 100 mg PO HS PRN 30 Days #30 tab 10/30/24 predniSONE 50 mg PO DAILY 5 Days #5 tab 10/31/24 EPINEPHrine (Auto Inject) [Epipen] 0.3 mg IM ONCE PRN #1 each 11/09/24 Albuterol Inhaler [Ventolin Hfa 1 - 2 puff INHALATION Q6H PRN #1 11/19/24 Inhaler] each Allergies Allergy/AdvReac Type Severity Reaction Status Date / Time aripiprazole [From Abilify] Allergy Anaphylaxis Verified 01/13/25 20:29 asenapine [From Saphris] Allergy Anaphylaxis Verified 01/13/25 20:29 clonazepam Allergy Anaphylaxis Verified 01/13/25 20:29 clonidine Allergy Anaphylaxis Verified 01/13/25 20:29 olanzapine [From Zyprexa] AdvReac Weight Gain Verified 01/13/25 20:29 blackened fish AdvReac Unknown Uncoded 11/19/24 13:56 Review of Systems ROS Statement: Those systems with pertinent positive or pertinent negative responses have been documented in the HPI. ROS Other: All systems not noted in ROS Statement are negative. Past Medical History Past Medical History: Asthma History of Any Multi-Drug Resistant Organisms: None Reported Past Surgical History: No Surgical Hx Reported Past Psychological History: ADD/ADHD, Anxiety Smoking Status: Current every day smoker, Vaper Past Alcohol Use History: None Reported Past Drug Use History: None Reported General Exam Limitations: no limitations General appearance: alert, in no apparent distress Head exam: Present: atraumatic, normocephalic, normal inspection Eye exam: Present: normal appearance, PERRL, EOMI. Absent: scleral icterus, conjunctival injection, periorbital swelling ENT exam: Present: normal exam, normal oropharynx, mucous membranes moist Neck exam: Present: normal inspection, full ROM. Absent: tenderness, meningismus, lymphadenopathy Respiratory exam: Present: normal lung sounds bilaterally. Absent: respiratory distress, wheezes, rales, rhonchi, stridor Cardiovascular Exam: Present: regular rate, normal rhythm, normal heart sounds. Absent: systolic murmur, diastolic murmur, rubs, gallop, clicks GI/Abdominal exam: Present: soft, normal bowel sounds. Absent: distended, tend erness, guarding, rebound, rigid Neurological exam: Present: alert Psychiatric exam: Present: flat affect Course Vital Signs 01/13/25 20:25 Temperature 98.3 F Pulse Rate 84 Respiratory 16 Rate Blood Pressure 151/87 O2 Sat by Pulse 98 Oximetry Medical Decision Making - Medical Decision Making Was pt. sent in by a medical professional or institution (, PA, BI SOLUTIONS ARCHITECT, urgent care, hospital, or half-way...) When possible be specific @ -No Did you speak to anyone other than the patient for history (EMS, parent, family, police, friend...)? What history was obtained from this source @ -No Did you review nursing and triage notes (agree or disagree)? Why? @ -I reviewed and agree with nursing and triage notes Were old charts reviewed (outside hosp., previous admission, EMS record, old EKG, old radiological studies, urgent care reports/EKG's, half-way records)? Report findings @ -No old charts were reviewed Differential Diagnosis (chest pain, altered mental status, abdominal pain women, abdominal pain men, vaginal bleeding, weakness, fever, dyspnea, syncope, headache, dizziness, GI bleed, back pain, seizure, CVA, palpatations, mental health, musculoskeletal)? @ -Differential Mental Health Depression, anxiety, bipolar, psychosis, schizophrenia, borderline personality, situational depression, adjustment disorder, behavioral disorder, brain tumor, malingering, substance abuse, encephalopathy, medication reaction, dementia, hypothyroidism, degenerative neurologic disorder, lupus.... This is not meant to be all-inclusive list EKG interpreted by me (3pts min.). @ -None X-rays interpreted by me (1pt min.). @ -None done CT interpreted by me (1pt min.). @ -None done U/S interpreted by me (1pt. min.). @ -None done What testing was considered but not performed or refused? (CT, X-rays, U/S, labs)? Why? @ -None What meds were considered but not given or refused? Why? @ -None Did you discuss the management of the patient with other professionals (professionals i.e. , PA, BI SOLUTIONS ARCHITECT, lab, RT, psych nurse, 7th grade social studies teacher, road supervisor, teacher, first officer and flight instructor, pillowcase sewer)? Give summary @ -EPS evaluated patient recommended inpatient psychiatric treatment Was smoking cessation discussed for >3mins.? @ -No Was critical care preformed (if so, how long)? @ -No Were there social determinants of health that impacted care today? How? (Homelessness, low income, unemployed, alcoholism, drug addiction, transportation, low edu. Level, literacy, decrease access to med. care, nursing home, rehab)? @ -No Was there de-escalation of care discussed even if they declined (Discuss DNR or withdrawal of care, Hospice)? DNR status @ -No What co-morbidities impacted this encounter? (DM, HTN, Smoking, COPD, CAD, Cancer, CVA, ARF, Chemo, Hep., AIDS, mental health diagnosis, sleep apnea, morbid obesity)? @ -None Was patient admitted / discharged? Hospital course, mention meds given and route, prescriptions, significant lab abnormalities, going to OR and other pertinent info. @ -Admit to 3 W. Undiagnosed new problem with uncertain prognosis? @ -No Drug Therapy requiring intensive monitoring for toxicity (Heparin, Nitro, Insulin, Cardizem)? @ -No Were any procedures done? @ -No Diagnosis/symptom? @ -Depression, suicide ideation Acute, or Chronic, or Acute on Chronic? @ -Acute Uncomplicated (without systemic symptoms) or Complicated (systemic symptoms)? @ -Complicated Side effects of treatment? @ -No Exacerbation, Progression, or Severe Exacerbation? @ -No Poses a threat to life or bodily function? How? (Chest pain, [place], [place], pneumonia, PE, COPD, DKA, ARF, appy, cholecystitis, CVA, Diverticulitis, Homicidal, Suicidal, threat to staff... and all critical care pts) @Yes suicidal Disposition Clinical Impression: Suicidal ideation, Depression Disposition: TRANSFER TO PSYCH HOSP/UNIT Referrals: None,Stated [Primary Care Provider] - 1-2 days Time of Disposition: 21:51
[2025-01-13] MEDS: NICOTINE 21MG/24HR PATCH TRANSDERM STA (21:14)
[2025-01-13 22:14] LABS: Opiate Screen,Urine Not Detected (NotDetected); Phencyclidine Screen,Urine Not Detected (NotDetected); Urn Cannabinoid Scrn Not Detected (NotDetected)
[2025-01-13 22:15] LABS: Barbiturate Screen,Urine Not Detected (NotDetected); Benzodiazepines Screen,Urine Not Detected (NotDetected); Oxycodone Screen, Urine Not Detected (NotDetected); Tricyclic Antidepressant,Urine Not Detected (NotDetected)
[2025-01-13] MEDS ORDERED: HALOPERIDOL LACTATE 5 MG/ML 1 ML VIAL IM PRN (23:40)
[2025-01-13] MEDS ORDERED: IBUPROFEN 600 MG TAB PO PRN (23:40)
[2025-01-13] MEDS ORDERED: ACETAMINOPHEN TAB 325 MG TAB PO PRN (23:40)
[2025-01-13] MEDS ORDERED: MAGNESIUM HYDROXIDE 2,400 MG/30 ML CUP PO PRN (23:40)
[2025-01-14 08:13] LABS: Basophils # (A) 0.01 10*3/uL (0.00-0.10); Basophils % (A) 0.2 %; Eosinophils # (A) 0.11 10*3/uL (0.04-0.35); Eosinophils % (A) 1.9 %; HCT 44.7 % (39.6-50.0); HGB 15.6 g/dL (13.0-17.0); Lymphocytes # (A) 1.71 10*3/uL (0.90-5.00); Lymphocytes % (A) 29.9 %; MCH 29.8 pg (27.0-32.0); MCHC 34.9 g/dL (32.0-37.0); MCV 85.5 fL (80.0-97.0); Monocytes # (A) 0.55 10*3/uL (0.20-1.00); Monocytes % (A) 9.6 %; Neutrophils # (A) 3.32 10*3/uL (1.80-7.70); Neutrophils % (A) 58.1 %; Platelet Count 216 10*3/uL (140-440); RBC 5.23 10*6/uL (4.40-5.60); RDW 12.0 % (11.5-14.5); WBC 5.72 10*3/uL (4.50-10.00)
[2025-01-14 08:28] LABS: ALT 25 U/L (4-49); AST 29 U/L (17-59); African American GFR (CKD) >90 (>60 ml/min/1.73 sqM); Albumin 4.4 g/dL (3.5-5.0); Alkaline Phosphatase 50 U/L (38-126); Anion Gap 9 mmol/L; Blood Urea Nitrogen 12 mg/dL (9-20); Calcium 9.4 mg/dL (8.4-10.2); Carbon Dioxide 24 mmol/L (22-30); Chloride 106 mmol/L (98-107); Glucose 97 mg/dL (74-99); Non-African American GFR(CKD) >90 (>60 ml/min/1.73 sqM); Potassium 4.3 mmol/L (3.5-5.1); Sodium 139 mmol/L (137-145); Total Protein 6.8 g/dL (6.3-8.2)
[2025-01-14] MEDS: NICOTINE 21MG/24HR PATCH TRANSDERM SCH (10:18)
--- NOTE | 2025-01-14 12:59 | P.HP ---
Psychiatric H&P - . H&P Date: 01/14/25 History & Physical: Allergies Allergy/AdvReac Type Severity Reaction Status Date / Time aripiprazole [From Abilify] Allergy Anaphylaxis Verified 01/13/25 20:29 asenapine [From Saphris] Allergy Anaphylaxis Verified 01/13/25 20:29 clonazepam Allergy Anaphylaxis Verified 01/13/25 20:29 clonidine Allergy Anaphylaxis Verified 01/13/25 20:29 olanzapine [From Zyprexa] AdvReac Weight Gain Verified 01/13/25 20:29 blackened fish AdvReac Unknown Uncoded 11/19/24 13:56 Vital Signs Temp 97.8 F 01/14/25 00:47 Pulse 65 01/14/25 00:47 Resp 18 01/14/25 00:47 BP 126/82 01/14/25 00:47 Pulse Ox 98 01/14/25 00:47 FiO2 Intake & Output 01/13/25 01/14/25 01/14/25 18:59 06:59 18:59 Weight 83.546 kg Laboratory Last Values Urine Opiates Screen Not Detected (NotDetected) 01/13/25 21:43 Ur Oxycodone Screen Not Detected (NotDetected) 01/13/25 21:43 Urine Methadone Screen Not Detected (NotDetected) 01/13/25 21:43 Ur Barbiturates Screen Not Detected (NotDetected) 01/13/25 21:43 U Tricyclic Antidepress Not Detected (NotDetected) 01/13/25 21:43 Ur Phencyclidine Scrn Not Detected (NotDetected) 01/13/25 21:43 Ur Amphetamines Screen Not Detected (NotDetected) 01/13/25 21:43 U Methamphetamines Scrn Not Detected (NotDetected) 01/13/25 21:43 U Benzodiazepines Scrn Not Detected (NotDetected) 01/13/25 21:43 Urine Cocaine Screen Not Detected (NotDetected) 01/13/25 21:43 U Marijuana (THC) Screen Not Detected (NotDetected) 01/13/25 21:43 SARS-CoV-2 (PCR) Not Detected (Not Detectd) 01/13/25 21:55 Dictation was produced using SpareFootation software. Please excuse any grammatical, word or spelling errors. IDENTIFYING DATA: Patient is a 24 years old male presented to the ED for depression and suicidal ideation HPI: Patient presented to the hospital depression and suicidal ideation, with a plan to slit his wrist, reported that he has a history of self-harm however no recent self-harm behavior. Per EPS report " patient brought to the ED by police with petition states that "patient told me he wanted to kill himself". The patient states that he called the police " I was having suicidal tendencies." Patient reports problem with his girlfriend but would not elaborate. Reported that he is going through a tough time with her. She reported that they have been together for about a year and reported that she is the only support he has. He reported suicidal plan to slit his wrist and neck. He admitted to self-harm a few weeks ago. Denies any HI or AVH. The patient was put on SIS after discharge from the facility 10/30/2024 and has not followed up with [facility]. He did not receive his long-acting injectable medication that was due on 11/30/2024." Per chart review patient had a tough upbringing. Upon evaluation today the patient was in his room, agreed to speak with the board writer in the office. He states that " I wanted to kill myself, because me and my girl friend has some issues." States that he does not know why she is mad. States that he called 911 asking for an ambulance and they send the police and they brought him to the ED. States that he has been having the suicidal thoughts for about a week, and he never acted on it. He denied any current suicidal thoughts, SI/HI, states that it varies depending the day. States that couple of months ago he slit his wrist, and states that his self harm behaviors started 6 years ago. He only use cutting as self harm, states that he feels better after cutting. States that he has been feeling down, sad, depressed, hopeless, helpless for about 2 weeks, he rated depression at 3/10. Sleep is good, appetite is good. He denied any current SI/HI or self harm. He denied feeling anxious or overwhelmed. At this time patient denies any auditory or visual hallucinations, states that he used to have visual hallucination about a year ago. States that he used to see spirit. Reported that he is paranoid at time. Patient denies any flight of ideas racing thoughts and increased in goal directed behavior. Patient admits to using tobacco 1 PPD, and vaping, denied any cannabis use, denied using any alcohol, or any illicit substance. Pt states that he recalls signing the referral last visit, reported that he missed his [facility] appointment and he is not sure if he is on a court order or not. The patient was guarded, conservative in his answer, was suspicious and paranoid at time especially when we were talking about the court order. When discussed the medication option patient reported that he had an allergic reaction to Invega and he does not want to be on it anymore. We discussed different antipsychotic options and patient agreed to try Seroquel to help with his depression and mood symptoms as well as his history of psychosis. He agreed to take the medication every day. PAST PSYCHIATRIC HISTORY: - Inpatient Hospitalizations: Patient was hospitalized at [facility] 10/24-10/31/2024, history of multiple previous hospitalization as a child. - Outpatient Care: Denies, per chart review he used to follow-up with [facility] - Current Psychotropics: denies using any medications - Prior Psychotropics/Therapy: Invega, trazodone, per chart review patient received Invega Sustenna on 10/30/2024, could not verify when it was last received afterward. Pt reported Adderall, and Abilify, Zyprexa and other psychotropic medication, per chart review he had different allergic reaction to multiple antipsychotic. Pt states that he is allergic to Invega? (could not recall a reaction) - Prior Psychiatric diagnoses: History of suicidal attempt, JOSE, and ADHD - Suicidal Attempts: denies - Self Harm: hx of cutting - Trauma History: denies PMH: as per ER note Past Medical History: Asthma History of Any Multi-Drug Resistant Organisms: None Reported Past Surgical History: No Surgical Hx Reported Past Psychological History: ADD/ADHD, Anxiety Smoking Status: Current every day smoker, Vaper Past Alcohol Use History: None Reported Past Drug Use History: None Reported ALLERGIES: as per EMR Patient reported that he had an allergic reaction to Invega CHEMICAL DEPENDENCY HISTORY: as per HPI FAMILY PSYCHIATRIC/SUBSTANCE USE HISTORY: denies SOCIAL HISTORY: Patient was born and raised in [place], he is unemployed, gets food stamps, single, never , no children, lives in a house with his girlfriend. Claims that he finished 10th grade, has learning disability. MENTAL STATUS EXAM: General Appearance: Patient appears to be stated age is alert, directable, and attempts to cooperate. Patient appears to have poor hygiene and grooming. Behavior: Patient is seated without any agitated behavior. Speech: Patient's speech is fluent and nonpressured. Mood/Affect: Patient reports their mood is " sad little", affect is congruent and constricted. Suicidality/Homicidality: Patient denies having any homicidal ideation intent or plan. Denies any suicidal ideations intent or plan Perceptions: Patient denies any visual hallucinations and denies any auditory hallucinations Though content/process: There is no evidence of any delusional thought content and thought process is linear and goal-directed. Memory and concentration: AOX3, grossly intact for the purposes of this session. Judgment and insight: poor STRENGTHS/WEAKNESSES: strength is that patient is resilient. Weakness is that patient has poor judgment and is impulsive INTELLECT: average IMPRESSIONS: -Schizophrenia spectrum and other unspecified psychotic disorder -MDD with psychotic feature versus schizoaffective disorder versus sc hizophrenia -Cannabis use disorder -Nicotine use disorder PLAN: -Patient signed medication consent and is placed in patient's chart. Per chart review from his previous hospitalization last October 2024, the patient signed deferral, will need to confirm if he is under a court order or not, since he has not been compliant with his medication, a demand for hearing may be needed. Per EPS intake conversation on intake call the patient is under court order till 04/2025, will need to confirm that he is under court order. -Medications : -Start Seroquel 25 mg p.o. daily -Ativan and Haldol PRN for agitation/aggression -Patient was counselled on tobacco use and desired to cut back on use -Patient was informed of the risks, benefits and side effects of the medication and patient verbally consented to taking the medications. Patient signed med consent form and was placed in chart. -Internal Medicine consult to perform medical evaluation and physical. -NRT - nicotine patch -SW on board for discharge planning. Encourage patient to participate in groups to work on coping skills. We will need to confirm if he is under a court order. Collateral from the patient girlfriend will be helpful 01/14/25 07:40 01/14/25 10:42 01/14/25 12:57
[2025-01-14 13:59] LABS: Amorphous Sediment,Urine Rare /hpf; Bilirubin,Urine Negative (Negative); Blood,Urine Negative (Negative); Calcium Oxalate Crystals,Urine Rare /hpf; Color,Urine Light Yellow; Glucose,Urine (UA) Negative (Negative); Ketones,Urine Negative (Negative); Leukocyte Esterase,Urine Negative (Negative); Mucus,Urine Occasional /hpf; Nitrite,Urine Negative (Negative); PH, Urine 6.5 (5.0-8.0); Protein,Urine Negative (Negative); RBC,Urine 1 /hpf (0-5); Specific Gravity,Urine 1.020 (1.001-1.035); Urobilinogen,Urine <2.0 mg/dL (<2.0); WBC,Urine 8 /hpf (0-5)
[2025-01-14] MEDS: QUEtiapine 25 MG TAB PO SCH (20:04)
--- NOTE | 2025-01-15 06:37 | P.PN ---
Progress Note - Text Progress Note Date: 01/15/25 patient not appropriate for evaluation at this time
--- NOTE | 2025-01-15 12:52 | P.PN ---
Progress Note - Text Progress Note Date: 01/15/25 Interval History: Patient was seen today for psychiatric follow up. Patient states that he came to the hospital because he was not feeling well and wanted to harm himself. Claims that he has been doing better since being in the hospital states that he is now taking Seroquel, helping with the voices. He continues to have very superficial/poor insight. Claims that he has not been following up with [facility]. Continues to be homeless. States that he is up for meals taking his medications not reporting any side effects. Denies any depression at this time denies any anxiety. Claims that he is sleeping at nighttime. Denies any auditory or visual hallucinations. Denies any suicidal or homicidal ideations intent or plan. MENTAL STATUS EXAM: General Appearance: Patient appears to be stated age is alert, directable, and attempts to cooperate. Patient appears to have mildly improving hygiene and grooming. Behavior: Patient is seated without any agitated behavior. Superficial/guarded Speech: Patient's speech is fluent and nonpressured. Mood/Affect: Patient reports their mood is " a bit better", affect is congruent and constricted. Suicidality/Homicidality: Patient denies having any homicidal ideation intent or plan. Denies any suicidal ideations intent or plan Perceptions: Patient denies any visual hallucinations and denies any auditory hallucinations Though content/process: There is no evidence of any delusional thought content and thought process is linear and goal-directed. [place] and guarded Memory and concentration: AOX3, grossly intact for the purposes of this session. Judgment and insight: Chronically poor, improving mildly IMPRESSIONS: Schizoaffective disorder, depressive type Cannabis use disorder Nicotine use disorder Homelessness PLAN: -Patient signed medication consent and is placed in patient's chart. Patient is currently on a deferral, will file demand for hearing today and await the court hearing date. -Medications : -d/c Seroquel and replace with invega 3 mg qhs for mood stabilization/psychosis -Ativan and Haldol PRN for agitation/aggression -NRT - nicotine patch - on board for discharge planning. Encourage patient to participate in groups to work on coping skills. Demand for hearing will be filed today, will await court hearing date.
[2025-01-15] MEDS: PALIPERIDONE 3 MG TAB.ER.24 PO SCH (20:43)
--- NOTE | 2025-01-16 11:51 | P.PN ---
Progress Note - Text Progress Note Date: 01/16/25 Interval History: Patient was seen today for psychiatric follow up. Patient was wandering the h allways agreeable to speak to curriculum writer in the office. Patient was fairly focused on discharge today. We spoke more about the court process and waiting the hearing date. He claims that he is willing to sign a waive and stip and agreed to the order. He continues to have very superficial/poor insight. States that he is up for meals taking his medications not reporting any side effects. Denies any depression at this time denies any anxiety. not going to groups. denies any depression or anxiety. Claims that he did not sleep well last night. Denies any auditory or visual hallucinations. Denies any suicidal or homicidal ideations intent or plan. MENTAL STATUS EXAM: General Appearance: Patient appears to be stated age is alert, directable, and attempts to cooperate. Patient appears to have mildly improving hygiene and grooming. Behavior: Patient is seated without any agitated behavior. Superficial/guarded, improving mildly Speech: Patient's speech is fluent and nonpressured. Mood/Affect: Patient reports their mood is "ok", affect is congruent and constricted. Suicidality/Homicidality: Patient denies having any homicidal ideation intent or plan. Denies any suicidal ideations intent or plan Perceptions: Patient denies any visual hallucinations and denies any auditory hallucinations Though content/process: There is no evidence of any delusional thought content and thought process is linear and goal-directed. [place] and guarded, focused on discharge Memory and concentration: AOX3, grossly intact for the purposes of this session. Judgment and insight: Chronically poor, improving mildly IMPRESSIONS: Schizoaffective disorder, depressive type Cannabis use disorder Nicotine use disorder Homelessness PLAN: -Patient signed medication consent and is placed in patient's chart. Patient is currently on a deferral, will file demand for hearing and await the court hearing date. -Medications : -Increase invega 6 mg qhs for mood stabilization/psychosis. Added trazodone 50 mg nightly for insomnia/mood. Patient will likely need to be transition onto long-acting injection due to patient's noncompliance -Ativan and Haldol PRN for agitation/aggression -NRT - nicotine patch -SW on board for discharge planning. Encourage patient to participate in groups to work on coping skills. Demand for hearing will be filed, will await court hearing date.
[2025-01-16] MEDS: NICOTINE GUM (POLACRILEX) 2 MG GUM BUCCAL PRN (14:38)
[2025-01-16] MEDS: PALIPERIDONE 6 MG TAB.ER.24 PO SCH (20:56)
[2025-01-17] MEDS: NICOTINE 14MG/24HR PATCH TRANSDERM SCH (08:44)
--- NOTE | 2025-01-17 09:58 | P.PN ---
Progress Note - Text Progress Note Date: 01/17/25 Interval History: Patient was seen today for psychiatric follow up. Patient was wandering the h allways agreeable to speak to telegraphic typewriter mechanic in the office. Patient appears to be more directable today, pleasant during the interaction. Claims that he wants to go home. States that he is doing fairly well denies any depression at this time or anxiety. Claims that he has been going to some groups, socializing on the unit. Claims that he has been showering well, up for meals taking his medications. Claims that he is living in a tent and is currently homeless. He continues to have very superficial/poor insight. Claims that he slept fairly last night. Denies any auditory or visual hallucinations. Denies any suicidal or homicidal ideations intent or plan. MENTAL STATUS EXAM: General Appearance: Patient appears to be stated age is alert, directable, and attempts to cooperate. Patient appears to have mildly improving hygiene and grooming. Behavior: Patient is seated without any agitated behavior. Superficial/guarded, improving mildly Speech: Patient's speech is fluent and nonpressured. Mood/Affect: Patient reports their mood is "fine", affect is congruent and constricted. improving mildly Suicidality/Homicidality: Patient denies having any homicidal ideation intent or plan. Denies any suicidal ideations intent or plan Perceptions: Patient denies any visual hallucinations and denies any auditory hallucinations Though content/process: There is no evidence of any delusional thought content and thought process is linear and goal-directed. [place] and guarded, focused on discharge, improving mildly Memory and concentration: AOX3, grossly intact for the purposes of this session. Judgment and insight: Chronically poor, improving mildly IMPRESSIONS: Schizoaffective disorder, depressive type Cannabis use disorder Nicotine use disorder Homelessness PLAN: -Patient signed medication consent and is placed in patient's chart. Patient is currently on a deferral, will file demand for hearing and await the court hearing date. -Medications : -invega 6 mg qhs for mood stabilization/psychosis. trazodone 50 mg nightly for insomnia/mood. Patient will likely need to be transition onto long-acting injection due to patient's noncompliance -Ativan and Haldol PRN for agitation/aggression -NRT - nicotine patch -SW on board for discharge planning. Encourage patient to participate in groups to work on coping skills. Demand for hearing scheduled for 01/24 however patient states that he would like to sign a waive and stip to the order.
[2025-01-18 08:34] VITALS: BP 116/78; PULSE 99; RESP 20; TEMP 97.9
--- NOTE | 2025-01-18 11:47 | P.DS ---
Providers Date of admission: 01/13/25 23:25 Expected date of discharge: 01/18/25 Attending physician: Dameon Staley MD Consults: 01/13/25 23:40 Consult Physician Routine Consulting Provider: Kel Traylor Consult Reason/Comments: Medical H&P Do you want consulting provider notified?: Yes Primary care physician: Stated None - Discharge Diagnosis(es) (1) Schizoaffective disorder, depressive type Current Visit: Yes Status: Acute Priority: High (2) Cannabis use disorder Current Visit: Yes Status: Acute Priority: Medium (3) Nicotine dependence Current Visit: Yes Status: Acute Priority: Low (4) Homelessness Current Visit: Yes Status: Acute Priority: Medium Hospital Course: Admission HPI: Admission note was completed by Dr Yu "patient presented to the hospital depression and suicidal ideation, with a plan to slit his wrist, reported that he has a history of self-harm however no recent self-harm behavior. Per EPS report " patient brought to the ED by police with petition states that "patient told me he wanted to kill himself". The patient states that he called the police " I was having suicidal tendencies." Patient reports problem with his girlfriend but would not elaborate. Reported that he is going through a tough time with her. She reported that they have been together for about a year and reported that she is the only support he has. He reported suicidal plan to slit his wrist and neck. He admitted to self-harm a few weeks ago. Denies any HI or AVH. The patient was put on SIS after discharge from the facility 10/30/2024 and has not followed up with [facility]. He did not receive his long-acting injectable medication that was due on 11/30/2024." Per chart review patient had a tough upbringing. Upon evaluation today the patient was in his room, agreed to speak with the hand sign writer in the office. He states that " I wanted to kill myself, because me and my girl friend has some issues." States that he does not know why she is mad. States that he called 911 asking for an ambulance and they send the police and they brought him to the ED. States that he has been having the suicidal thoughts for about a week, and he never acted on it. He denied any cur rent suicidal thoughts, SI/HI, states that it varies depending the day. States that couple of months ago he slit his wrist, and states that his self harm behaviors started 6 years ago. He only use cutting as self harm, states that he feels better after cutting. States that he has been feeling down, sad, depressed, hopeless, helpless for about 2 weeks, he rated depression at 3/10. Sleep is good, appetite is good. He denied any current SI/HI or self harm. He denied feeling anxious or overwhelmed. At this time patient denies any auditory or visual hallucinations, states that he used to have visual hallucination about a year ago. States that he used to see spirit. Reported that he is paranoid at time. Patient denies any flight of ideas racing thoughts and increased in goal directed behavior. Patient admits to using tobacco 1 PPD, and vaping, denied any cannabis use, denied using any alcohol, or any illicit substance. Pt states that he recalls signing the referral last visit, reported that he missed his [facility] appointment and he is not sure if he is on a court order or not. The patient was guarded, conservative in his answer, was suspicious and paranoid at time especially when we were talking about the court order. When discussed the medication option patient reported that he had an allergic reaction to Invega and he does not want to be on it anymore. We discussed different antipsychotic options and patient agreed to try Seroquel to help with his depression and mood symptoms as well as his history of psychosis. He agreed to take the medication every day." Hospital course: Upon admission to the unit patient was admitted involuntarily on a active deferral, filed demand for hearing. Patient was agreeable to consent to the mental health order and signed this with his ict customer support officer on 01/17. Patient was initially bizarre, pacing the hallways responding to internal stimuli however with time and treatment patient got along well with other patients on the unit and followed unit protocol. Patient was compliant with the medications and denied any side effects throughout hospital course. Patient was started on Invega 6 mg nightly for psychosis/mood stabilization. Patient was agreeable to be transition onto Uzedy 100 mg SQ was given on day of discharge 01/18. Patient was also started on trazodone 100 mg nightly as needed for sleep. Patient spoke of his stressors however did not participate much in group/activity therapy and mainly kept to themselves during hospitalization. Patient was also seen by medical team for history and physical exam. Throughout the course of the hospitalization patient gradually improved with regards to mood, anxiety, psychosis, sleep and returned back to their baseline level of functioning. On the day of discharge patient denied any suicidal or homicidal ideations intent or plan denied any auditory or visual hallucinations. Patient endorsed wanting to live for his housing and his future. The patient denied any access to guns or weapons. Patient denied any paranoia and did not endorse any delusions. Patient does have a significant history of substance abuse and was counseled on abstaining from all substances including alcohol and marijuana. Patient was offered however declined inpatient substance-abuse rehab. Patient elected to do outpatient substance use treatment program through their outpatient provider. Patient was also counseled on the medications and need for regular compliance and was encouraged to follow-up with their outpatient appointment for mental health and also for primary care. Patient will be discharged today with correction resources, will be following up at [facility]. Mental status exam: General Appearance: Patient appears to be short in stature, mildly overweight, stated age is alert, pleasant, and cooperative. Patient is in no acute distress and has improved hygiene and grooming Behavior: Patient is calmly seated without any agitated behavior. Speech: Patient's speech is fluent and nonpressured. Mood/Affect: Patient reports their mood is "good", affect is congruent and euthymic. Suicidality/Homicidality: Patient denies having any suicidal or homicidal ideation intent or plan. Perceptions: Patient denies any auditory or visual hallucinations. Though content/process: There is no evidence of any delusional thought content and thought process is linear and goal-directed. Memory and concentration: AOX3, grossly intact for the purposes of this session. Can spell "WORLD" backwards correctly. Judgment and insight: Chronically poor, however has improved with guarded prognosis Impression: Schizoaffective disorder depressive type Cannabis use disorder Homelessness Nicotine dependence Plan: -Continue with discharge today as patient has improved and stabilized psychiatrically and is not currently an imminent threat to themself and/or others. Patient will remain at chronically elevated risk for harm to self and/or others due to their impulsivity and substance abuse. -Continue medications: Invega p.o. discontinued. patient will be recieving Uzedy OSHEA 100 mg sq on 01/18 and next dose will be due at [facility] on 02/15. Trazodone 100 mg nightly as needed for insomnia -Patient was counseled on the need for medication compliance and appropriate follow-up at mental health and also primary care for medical issues. Patient verbalized understanding and agreed. -Social work to help coordinate patients discharge today. also to ensure safe home environment that guns/weapons are either removed from the home or locked away. Social work also to arrange for patients follow up appointments with [facility] for psychiatric care along with follow up with primary care provider. -Patient counseled on abstaining from recreational drugs and marijuana and alcohol. Was informed/educated on the adverse effects on their physical and mental health. Patient verbally agreed and understood. Patient was offered substance abuse treatment however declined at this time. -Patient was instructed to return to the hospital or seek immediate medical care if their psychiatric or medical symptoms do worsen or reoccur. Allergies Allergy/AdvReac Type Severity Reaction Status Date / Time aripiprazole [From Abilify] Allergy Anaphylaxis Verified 01/13/25 20:29 asenapine [From Saphris] Allergy Anaphylaxis Verified 01/13/25 20:29 clonazepam Allergy Anaphylaxis Verified 01/13/25 20:29 clonidine Allergy Anaphylaxis Verified 01/13/25 20:29 olanzapine [From Zyprexa] AdvReac Weight Gain Verified 01/13/25 20:29 blackened fish AdvReac Unknown Uncoded 11/19/24 13:56 Laboratory Results WBC 5.72 10*3/uL (4.50-10.00) 01/14/25 07:53 RBC 5.23 10*6/uL (4.40-5.60) 01/14/25 07:53 Hgb 15.6 g/dL (13.0-17.0) 01/14/25 07:53 Hct 44.7 % (39.6-50.0) 01/14/25 07:53 MCV 85.5 fL (80.0-97.0) 01/14/25 07:53 MCH 29.8 pg (27.0-32.0) 01/14/25 07:53 MCHC 34.9 g/dL (32.0-37.0) 01/14/25 07:53 Plt Count 216 10*3/uL (140-440) 01/14/25 07:53 MPV 9.3 fL (9.5-12.2) L 01/14/25 07:53 Immature Gran % (Auto) 0.3 % 01/14/25 07:53 Neutrophils % 58.1 % 01/14/25 07:53 Lymphocytes % 29.9 % 01/14/25 07:53 Monocytes % 9.6 % 01/14/25 07:53 Eosinophils % 1.9 % 01/14/25 07:53 Basophils % 0.2 % 01/14/25 07:53 Immature Gran # 0.02 10*3/uL (0.00-0.04) 01/14/25 07:53 Neutrophils # 3.32 10*3/uL (1.80-7.70) 01/14/25 07:53 Lymphocytes # 1.71 10*3/uL (0.90-5.00) 01/14/25 07:53 Monocytes # 0.55 10*3/uL (0.20-1.00) 01/14/25 07:53 Eosinophils # 0.11 10*3/uL (0.04-0.35) 01/14/25 07:53 Basophils # 0.01 10*3/uL (0.00-0.10) 01/14/25 07:53 Sodium 139 mmol/L (137-145) 01/14/25 07:53 Potassium 4.3 mmol/L (3.5-5.1) 01/14/25 07:53 Chloride 106 mmol/L (98-107) 01/14/25 07:53 Carbon Dioxide 24 mmol/L (22-30) 01/14/25 07:53 Anion Gap 9 mmol/L 01/14/25 07:53 BUN 12 mg/dL (9-20) 01/14/25 07:53 Creatinine 0.71 mg/dL (0.66-1.25) 01/14/25 07:53 Est GFR (CKD-EPI)AfAm >90 (>60 ml/min/1.73 sqM) 01/14/25 07:53 Est GFR (CKD-EPI)NonAf >90 (>60 ml/min/1.73 sqM) 01/14/25 07:53 Glucose 97 mg/dL (74-99) 01/14/25 07:53 Calcium 9.4 mg/dL (8.4-10.2) 01/14/25 07:53 Total Bilirubin 0.6 mg/dL (0.2-1.3) 01/14/25 07:53 AST 29 U/L (17-59) 01/14/25 07:53 ALT 25 U/L (4-49) 01/14/25 07:53 Alkaline Phosphatase 50 U/L (38-126) 01/14/25 07:53 Total Protein 6.8 g/dL (6.3-8.2) 01/14/25 07:53 Albumin 4.4 g/dL (3.5-5.0) 01/14/25 07:53 TSH 0.552 mIU/L (0.465-4.680) 01/14/25 07:53 Urine Color Light Yellow 01/13/25 21:43 Urine Appearance Cloudy (Clear) 01/13/25 21:43 Urine pH 6.5 (5.0-8.0) 01/13/25 21:43 Ur Specific [place] 1.020 (1.001-1.035) 01/13/25 21:43 Urine Protein Negative (Negative) 01/13/25 21:43 Urine Glucose (UA) Negative (Negative) 01/13/25 21:43 Urine Ketones Negative (Negative) 01/13/25 21:43 Urine Blood Negative (Negative) 01/13/25 21:43 Urine Nitrite Negative (Negative) 01/13/25 21:43 Urine Bilirubin Negative (Negative) 01/13/25 21:43 Urine Urobilinogen <2.0 mg/dL (<2.0) 01/13/25 21:43 Ur Leukocyte Esterase Negative (Negative) 01/13/25 21:43 Urine RBC 1 /hpf (0-5) 01/13/25 21:43 Urine WBC 8 /hpf (0-5) H 01/13/25 21:43 Calcium Oxalate Crystal Rare /hpf (None) H 01/13/25 21:43 Amorphous Sediment Rare /hpf (None) H 01/13/25 21:43 Urine Mucus Occasional /hpf (None) H 01/13/25 21:43 Urine Opiates Screen Not Detected (NotDetected) 01/13/25 21:43 Ur Oxycodone Screen Not Detected (NotDetected) 01/13/25 21:43 Urine Methadone Screen Not Detected (NotDetected) 01/13/25 21:43 Ur Barbiturates Screen Not Detected (NotDetected) 01/13/25 21:43 U Tricyclic Antidepress Not Detected (NotDetected) 01/13/25 21:43 Ur Phencyclidine Scrn Not Detected (NotDetected) 01/13/25 21:43 Ur Amphetamines Screen Not Detected (NotDetected) 01/13/25 21:43 U Methamphetamines Scrn Not Detected (NotDetected) 01/13/25 21:43 U Benzodiazepines Scrn Not Detected (NotDetected) 01/13/25 21:43 Urine Cocaine Screen Not Detected (NotDetected) 01/13/25 21:43 U Marijuana (THC) Screen Not Detected (NotDetected) 01/13/25 21:43 SARS-CoV-2 (PCR) Not Detected (Not Detectd) 01/13/25 21:55 Vital Signs Temp 97.9 F 01/18/25 08:33 Pulse 99 01/18/25 08:33 Resp 20 01/18/25 08:33 BP 116/78 01/18/25 08:33 Pulse Ox 98 01/18/25 08:33 FiO2 Patient Condition at Discharge: Stable Plan - Discharge Summary Discharge Rx Participant: Yes New Discharge Prescriptions: New traZODone HCL [Desyrel] 100 mg PO HS PRN 30 Days #30 tab PRN Reason: Insomnia Nicotine 14Mg/24Hr Patch [Habitrol] 1 patch TRANSDERM DAILY 14 Days #14 patch Ibuprofen [Motrin] 600 mg PO Q6HR PRN tab PRN Reason: Moderate Pain (Scale 4 To 6) Nicotine Gum (Polacrilex) [Nicorette] 2 mg BUCCAL Q4HR PRN pieceofgum PRN Reason: Nicotine Cravings risperiDONE [Uzedy] 100 mg SQ QMONTHLY #1 each Continue EPINEPHrine (Auto Inject) [Epipen] 0.3 mg IM ONCE PRN #1 each PRN Reason: Anaphylaxis Albuterol Inhaler [Ventolin Hfa Inhaler] 1 - 2 puff INHALATION Q6H PRN #1 each PRN Reason: Shortness Of Breath Discontinued traZODone HCL [Desyrel] 100 mg PO HS PRN 30 Days #30 tab PRN Reason: Insomnia predniSONE 50 mg PO DAILY 5 Days #5 tab Discharge Medication List EPINEPHrine (Auto Inject) [Epipen] 0.3 mg IM ONCE PRN #1 each 11/09/24 [Rx] Albuterol Inhaler [Ventolin Hfa Inhaler] 1 - 2 puff INHALATION Q6H PRN #1 each 11/19/24 [Rx] Ibuprofen [Motrin] 600 mg PO Q6HR PRN tab 01/18/25 [Rx] Nicotine 14Mg/24Hr Patch [Habitrol] 1 patch TRANSDERM DAILY 14 Days #14 patch 01/18/25 [Rx] Nicotine Gum (Polacrilex) [Nicorette] 2 mg BUCCAL Q4HR PRN pieceofgum 01/18/25 [Rx] risperiDONE [Uzedy] 100 mg SQ QMONTHLY #1 each 01/18/25 [Rx] traZODone HCL [Desyrel] 100 mg PO HS PRN 30 Days #30 tab 01/18/25 [Rx] Follow up Appointment(s)/Referral(s): [facility] [Outside] - 01/23/25 2:00 pm (01/23/2025 2:00PM - 3:00PM TIANA OSORIO 02/01/2025 11:00AM - 12:00PM LORA STACK ) None,Stated [Primary Care Provider] - 1-2 days Activity/Diet/Wound Care/Special Instructions: [facility] Discharge Info Avoid the use of street drugs and alcohol. Take all medications as prescribed. When you are in need of refills on your medications, please contact your outpatient medical provider and/or outpatient psychiatrist. Please go to your scheduled outpatient appointments for aftercare treatment. If symptoms return or become worse, call the crisis line at or and/or visit the nearest emergency room for assistance. National Suicide and Crisis Lifeline - call or text 013.Medical physician recommends to follow up outpatient in 4-6 weeks to have thyroid levels checked again. Recommendations to have an EMG outpatient on bilateral upper extremities for probable bilateral carpal tunnel. Discharge Disposition: OTHER INSTITUTION NOT DEFINED
[2025-01-18] MEDS: MAG HYDROX/AL HYDROX/SIMETH 355 ML BOTTLE PO PRN (12:34)
[2025-01-18] MEDS: risperiDONE 100 MG/0.28 ML SYR (NO COST) SQ SCH (12:36)
== END 2025-01-18 14:25 | disposition home or self-care (01) | DRG 761 ==
LOC: EC 20:21 → 3MHU 23:25
PROVIDERS: ADMIT Psychiatry & Neurology Psychiatry; ATTEND Psychiatry & Neurology Psychiatry
DX: F25.1 Schizoaffective disorder, depressive type (principal); F12.90 Cannabis use, unspecified, uncomplicated; F17.200 Nicotine dependence, unspecified, uncomplicated; F41.9 Anxiety disorder, unspecified; F90.9 Attention-deficit hyperactivity disorder, unspecified type; J45.909 Unspecified asthma, uncomplicated; R45.851 Suicidal ideations; Z56.0 Unemployment, unspecified; Z59.00 Homelessness unspecified; Z79.899 Other long term (current) drug therapy; Z91.148 Patient's other noncompliance with medication regimen for other reason; Z91.52 Personal history of nonsuicidal self-harm; Z11.52 Encounter for screening for COVID-19
CPT/HCPCS: 80053; 80306; 81001; 82075; 84443; 85025; 87635; 99285

== ENCOUNTER 2025-01-18 16:51 | Emergency (ER) | payer OTHER ==
[2025-01-18 17:05] VITALS: BP 116/81; PULSE 98; RESP 18; TEMP 98.5
--- NOTE | 2025-01-18 17:16 | ED ---
Allergic Reaction HPI - General Chief complaint: Allergic Reaction Stated complaint: Allergic Reaction Time Seen by Provider: 01/18/25 17:13 Source: patient, EMS, RN notes reviewed Mode of arrival: EMS Limitations: no limitations - History of Present Illness Initial Comments: 24-year-old male presenting for concerns of allergic reaction. States he rece ived his dose of Uzedy today at 12:30 PM before being discharged from the psychiatric unit. States afterwards he began to feel tingling and swelling in his tongue. This prompted him to call EMS. States he was given dose of Benadryl in the ambulance and symptoms have now resolved. Denies difficulty breathing or swallowing. Denies lip swelling. Denies rash or itchiness. States this has happened in the past with his Invega injections. He does have an EpiPen at home. - Related Data Previous Rx's Medication Instructions Recorded EPINEPHrine (Auto Inject) [Epipen] 0.3 mg IM ONCE PRN #1 each 11/09/24 Albuterol Inhaler [Ventolin Hfa 1 - 2 puff INHALATION Q6H PRN #1 11/19/24 Inhaler] each Ibuprofen [Motrin] 600 mg PO Q6HR PRN tab 01/18/25 Nicotine 14Mg/24Hr Patch [Habitrol] 1 patch TRANSDERM DAILY 14 Days 01/18/25 #14 patch Nicotine Gum (Polacrilex) 2 mg BUCCAL Q4HR PRN pieceofgum 01/18/25 [Nicorette] diphenhydrAMINE [Benadryl] 50 mg PO QID PRN #20 capsule 01/18/25 risperiDONE [Uzedy] 100 mg SQ QMONTHLY #1 each 01/18/25 traZODone HCL [Desyrel] 100 mg PO HS PRN 30 Days #30 tab 01/18/25 Allergies Allergy/AdvReac Type Severity Reaction Status Date / Time aripiprazole [From Abilify] Allergy Anaphylaxis Verified 01/13/25 20:29 asenapine [From Saphris] Allergy Anaphylaxis Verified 01/13/25 20:29 clonazepam Allergy Anaphylaxis Verified 01/13/25 20:29 clonidine Allergy Anaphylaxis Verified 01/13/25 20:29 olanzapine [From Zyprexa] AdvReac Weight Gain Verified 01/13/25 20:29 blackened fish AdvReac Unknown Uncoded 11/19/24 13:56 Review of Systems ROS Statement: Those systems with pertinent positive or pertinent negative responses have been documented in the HPI. ROS Other: All systems not noted in ROS Statement are negative. Past Medical History Past Medical History: Asthma History of Any Multi-Drug Resistant Organisms: None Reported Past Surgical History: No Surgical Hx Reported Past Anesthesia/Blood Transfusion Reactions: No Reported Reaction Past Psychological History: ADD/ADHD, Anxiety, Depression Smoking Status: Current every day smoker, Vaper Past Alcohol Use History: None Reported Past Drug Use History: None Reported - Past Family History Father Family Medical History: Unable to Obtain Mother Family Medical History: Unable to Obtain General Exam Limitations: no limitations General appearance: alert, in no apparent distress Head exam: Present: atraumatic, normocephalic, normal inspection Eye exam: Present: normal appearance, PERRL, EOMI. Absent: scleral icterus, conjunctival injection, periorbital swelling ENT exam: Present: normal exam, normal oropharynx, mucous membranes moist Neck exam: Present: normal inspection. Absent: tenderness, meningismus, lymphadenopathy Respiratory exam: Present: normal lung sounds bilaterally. Absent: respiratory distress, wheezes, rales, rhonchi, stridor Cardiovascular Exam: Present: regular rate, normal rhythm, normal heart sounds. Absent: systolic murmur, diastolic murmur, rubs, gallop, clicks Neurological exam: Present: alert, oriented X3 Psychiatric exam: Present: normal affect, normal mood Skin exam: Present: warm, dry, intact, normal color. Absent: rash Course Vital Signs 01/18/25 16:59 Temperature 98.5 F Pulse Rate 98 Respiratory 18 Rate Blood Pressure 116/81 O2 Sat by Pulse 97 Oximetry Medical Decision Making - Medical Decision Making Was pt. sent in by a medical professional or institution (, PA, PRINT COLOR OPERATOR, urgent care, hospital, or usp...) When possible be specific @ -No Did you speak to anyone other than the patient for history (EMS, parent, family, police, friend...)? What history was obtained from this source @ -No Did you review nursing and triage notes (agree or disagree)? Why? @ -I reviewed and agree with nursing and triage notes Were old charts reviewed (outside hosp., previous admission, EMS record, old EKG, old radiological studies, urgent care reports/EKG's, usp records)? Report findings @ -No old charts were reviewed Differential Diagnosis (chest pain, altered mental status, abdominal pain women, abdominal pain men, vaginal bleeding, weakness, fever, dyspnea, syncope, headache, dizziness, GI bleed, back pain, seizure, CVA, palpatations, mental health, musculoskeletal)? @ -Allergic reaction, anaphylaxis, angioedema EKG interpreted by me (3pts min.). @ -None X-rays interpreted by me (1pt min.). @ -None done CT interpreted by me (1pt min.). @ -None done U/S interpreted by me (1pt. min.). @ -None done What testing was considered but not performed or refused? (CT, X-rays, U/S, labs)? Why? @ -None What meds were considered but not given or refused? Why? @ -None Did you discuss the management of the patient with other professionals (professionals i.e. , PA, PRINT COLOR OPERATOR, lab, RT, psych nurse, social service director, coke crusher operator, teacher, safety officer, case folder)? Give summary @ -No Was smoking cessation discussed for >3mins.? @ -No Was critical care preformed (if so, how long)? @ -No Were there social determinants of health that impacted care today? How? (Homelessness, low income, unemployed, alcoholism, drug addiction, transportation, low edu. Level, literacy, decrease access to med. care, longterm, rehab)? @ -No Was there de-escalation of care discussed even if they declined (Discuss DNR or withdrawal of care, Hospice)? DNR status @ -No What co-morbidities impacted this encounter? (DM, HTN, Smoking, COPD, CAD, Cancer, CVA, ARF, Chemo, Hep., AIDS, mental health diagnosis, sleep apnea, morbid obesity)? @ -None Was patient admitted / discharged? Hospital course, mention meds given and route, prescriptions, significant lab abnormalities, going to OR and other pertinent info. @ -Discharge. 24-year-old male presenting for concerns of allergic reaction after receiving dose of Uzedy he at 12:30 PM today before discharge from the psychiatric unit. States he was given Benadryl by EMS and reports complete resolution of symptoms. Denies difficulty breathing or swallowing. Patient is well-appearing, no acute distress. Patient can be safely discharged home and advised to continue [id number] Benadryl [id number]. Appropriate return parameters and follow-up care discussed. Case was discussed with my ED attending Dr. Pat Undiagnosed new problem with uncertain prognosis? @ -No Drug Therapy requiring intensive monitoring for toxicity (Heparin, Nitro, Insulin, Cardizem)? @ -No Were any procedures done? @ -No Diagnosis/symptom? @ -Allergic reaction Acute, or Chronic, or Acute on Chronic? @ -Acute Uncomplicated (without systemic symptoms) or Complicated (systemic symptoms)? @ -Uncomplicated Side effects of treatment? @ -No Exacerbation, Progression, or Severe Exacerbation? @ -No Poses a threat to life or bodily function? How? (Chest pain, [place], [place], pneumonia, PE, COPD, DKA, ARF, appy, cholecystitis, CVA, Diverticulitis, Homicidal, Suicidal, threat to staff... and all critical care pts) @ -Unlikely at this time Disposition Clinical Impression: Allergic reaction Disposition: HOME SELF-CARE Condition: Stable Additional Instructions: Continue Benadryl every 6 hours at home. Please return to the Emergency Department if symptoms worsen or any other concerns. Prescriptions: diphenhydrAMINE [Benadryl] 50 mg PO QID PRN #20 capsule PRN Reason: tongue/lip tingling Is patient prescribed a controlled substance at d/c from ED?: No Referrals: None,Stated [Primary Care Provider] - 1-2 days Time of Disposition: 17:39
== END 2025-01-18 18:01 | disposition home or self-care (01) ==
LOC: EC 16:51
DX: T78.40XA Allergy, unspecified, initial encounter (principal); F17.290 Nicotine dependence, other tobacco product, uncomplicated; Z88.8 Allergy status to other drugs, medicaments and biological substances; Z91.013 Allergy to seafood; Z88.6 Allergy status to analgesic agent
CPT/HCPCS: 99283

== ENCOUNTER 2025-01-19 11:43 | Emergency (ER) | payer OTHER ==
[2025-01-19 11:51] VITALS: BP 134/76; PULSE 88; RESP 18; TEMP 97.8
--- NOTE | 2025-01-19 12:04 | ED ---
Allergic Reaction HPI - General Chief complaint: Allergic Reaction Stated complaint: Possible allergic reaction Time Seen by Provider: 01/19/25 11:45 Source: patient, EMS, RN notes reviewed Mode of arrival: EMS Limitations: no limitations - History of Present Illness Initial Comments: This is a 24-year-old male who presents to the emergency department for concerns of an allergic reaction. Patient was discharged from [facility] yesterday and was given a Uzedy injection. He came back later that day for tingling to his tongue and felt like he was having allergic reaction. Patient has been evaluated here multiple times for the same complaint. He was given Benadryl and symptoms resolved and he was discharged home. Patient states that he returned today because symptoms recurred. Patient had a friend sitting outside of his room in the emergency department and he was engaging in normal conversation. When I went to evaluate the patient he started to pretend like he could not speak and said his tongue hurts and is swollen. MD Complaint: allergic reaction - Related Data Previous Rx's Medication Instructions Recorded EPINEPHrine (Auto Inject) [Epipen] 0.3 mg IM ONCE PRN #1 each 11/09/24 Albuterol Inhaler [Ventolin Hfa 1 - 2 puff INHALATION Q6H PRN #1 11/19/24 Inhaler] each Ibuprofen [Motrin] 600 mg PO Q6HR PRN tab 01/18/25 Nicotine 14Mg/24Hr Patch [Habitrol] 1 patch TRANSDERM DAILY 14 Days 01/18/25 #14 patch Nicotine Gum (Polacrilex) 2 mg BUCCAL Q4HR PRN pieceofgum 01/18/25 [Nicorette] diphenhydrAMINE [Benadryl] 50 mg PO QID PRN #20 capsule 01/18/25 risperiDONE [Uzedy] 100 mg SQ QMONTHLY #1 each 01/18/25 traZODone HCL [Desyrel] 100 mg PO HS PRN 30 Days #30 tab 01/18/25 Allergies Allergy/AdvReac Type Severity Reaction Status Date / Time aripiprazole [From Abilify] Allergy Anaphylaxis Verified 01/19/25 11:51 asenapine [From Saphris] Allergy Anaphylaxis Verified 01/19/25 11:51 clonazepam Allergy Anaphylaxis Verified 01/19/25 11:51 clonidine Allergy Anaphylaxis Verified 01/19/25 11:51 olanzapine [From Zyprexa] AdvReac Weight Gain Verified 01/19/25 11:51 blackened fish AdvReac Unknown Uncoded 01/19/25 11:51 Review of Systems ROS Statement: Those systems with pertinent positive or pertinent negative responses have been documented in the HPI. ROS Other: All systems not noted in ROS Statement are negative. Past Medical History Past Medical History: Asthma History of Any Multi-Drug Resistant Organisms: None Reported Past Surgical History: No Surgical Hx Reported Past Anesthesia/Blood Transfusion Reactions: No Reported Reaction Past Psychological History: ADD/ADHD, Anxiety, Depression Smoking Status: Current every day smoker, Vaper Past Alcohol Use History: None Reported Past Drug Use History: None Reported - Past Family History Father Family Medical History: Unable to Obtain Mother Family Medical History: Unable to Obtain General Exam Limitations: no limitations General appearance: alert, in no apparent distress Head exam: Present: atraumatic, normocephalic, normal inspection ENT exam: Present: normal oropharynx, other (No swelling to the tongue) Neck exam: Present: normal inspection. Absent: tenderness, meningismus, lymphadenopathy Respiratory exam: Present: normal lung sounds bilaterally. Absent: respiratory distress, wheezes, rales, rhonchi, stridor Cardiovascular Exam: Present: regular rate, normal rhythm Neurological exam: Present: alert, oriented X3, CN II-XII intact Psychiatric exam: Present: normal affect, normal mood Skin exam: Present: warm, dry, intact, normal color. Absent: rash Course Vital Signs 01/19/25 01/19/25 11:44 11:52 Temperature 97.8 F Pulse Rate 88 Respiratory 18 18 Rate Blood Pressure 134/76 O2 Sat by Pulse 98 Oximetry Medical Decision Making - Medical Decision Making This is a 24-year-old male who presents to the emergency department for concerns of an allergic reaction. Was pt. sent in by a medical professional or institution? @ -No Did you speak to anyone other than the patient for history? @ -No Did you review nursing and triage notes? @ -Yes, and I agree, it is accurate with regards to the patient's symptoms. Were old charts reviewed? @ -No Differential Diagnosis? @ -Allergic reaction, panic attack, atopic dermatitis, contact dermatitis, sinusitis, pharyngitis, COVID, influenza, asthma exacerbation. This is not meant to be an all-inclusive list. EKG interpreted by me (3pts min.)? @ -Not obtained X-rays interpreted by me (1pt min.)? @ -Not obtained CT interpreted by me (1pt min.)? @ -Not obtained U/S interpreted by me (1pt. min.)? @ -Not obtained What testing was considered but not performed? (CT, X-rays, U/S, labs)? Why? @ -None What meds were considered but not given? Why? @ -None Did you discuss the management of the patient with other professionals? @ -No Did you reconcile home meds? @ -No Was smoking cessation discussed for >3mins.? @ -No Was critical care preformed (if so, how long)? @ -No Were there social determinants of health that impacted care today? How? (Homelessness, low income, unemployed, alcoholism, drug addiction, transportation, low edu. Level, literacy, decrease access to med. care, group home, rehab)? @ -No Was there de-escalation of care discussed even if they declined? (Discuss DNR or withdrawal of care, Hospice)? @ -No What co-morbidities impacted this encounter? (DM, HTN, Smoking, COPD, CAD, Cancer, CVA, Hep., AIDS, mental health diagnosis, sleep apnea, morbid obesity)? @ -Psychiatric disorder Was patient admitted / discharged? @ -Discharged. When the patient arrived into the emergency department he was engaging in normal conversation with a friend outside of the room. As soon as I went to speak with the patient he started to pretend like he could not speak and that his tongue was swollen, which was not the case. IM Benadryl administered and patient states that the symptoms resolved instantly, which would not be the case if this were a true reaction. Patient has been evaluated here for the same complaint multiple times in the past and this presentation is consistent with factitious illness. Patient discharged home in stable condition. Case discussed with ED attending Dr. Adair. Return precautions reviewed in depth, the patient is instructed to return to the emergency department with any new, worsening, or concerning symptoms. Patient verbalized understanding. Undiagnosed new problem with uncertain prognosis? @ -None Drug Therapy requiring intensive monitoring for toxicity (Heparin, Nitro, Insulin, Cardizem)? @ -None Were any procedures done? @ -None Diagnosis/symptom? @ -Allergic reaction, factitious illness Acute, or Chronic, or Acute on Chronic? @ -Acute Uncomplicated (without systemic symptoms) or Complicated (systemic symptoms)? @ -Uncomplicated Side effects of treatment? @ -None Exacerbation, Progression, or Severe Exacerbation] @ -Not applicable Poses a threat to life or bodily function? @ -No Disposition Clinical Impression: Allergic reaction, Factitious illness Disposition: HOME SELF-CARE Instructions (If sedation given, give patient instructions): General Allergic Reaction (ED) Additional Instructions: Return to the emergency department with any new, worsening, or concerning symptoms. Follow up with your primary care provider in 1-2 days. Is patient prescribed a controlled substance at d/c from ED?: No Referrals: None,Stated [Primary Care Provider] - 1-2 days Time of Disposition: 12:10
[2025-01-19] MEDS: diphenhydrAMINE 50 MG/ML 1 ML VIAL IM STA (12:05)
== END 2025-01-19 12:37 | disposition home or self-care (01) ==
LOC: EC 11:43
DX: T78.40XA Allergy, unspecified, initial encounter (principal); F68.10 Factitious disorder imposed on self, unspecified; F99 Mental disorder, not otherwise specified; F17.290 Nicotine dependence, other tobacco product, uncomplicated; Z91.013 Allergy to seafood; Z88.8 Allergy status to other drugs, medicaments and biological substances
CPT/HCPCS: 99283; 96372; J1200

== ENCOUNTER 2025-01-19 18:36 | Emergency (ER) | payer OTHER ==
--- NOTE | 2025-01-19 18:54 | ED ---
General Adult HPI - General Chief complaint: Shortness of Breath Stated complaint: allergic reaction Time Seen by Provider: 01/19/25 18:38 Source: patient, RN notes reviewed, old records reviewed Mode of arrival: EMS Limitations: no limitations - History of Present Illness Initial comments: 24-year-old male who presents with chief complaint of "allergic reaction". Patient believes he is having allergic reaction to his risperidone shot which she received 2 days ago. Patient states he felt like his tongue was swollen he was given Benadryl by paramedics. Patient denies dyspnea. Denies vomiting. Denies rash. He has been on this medication for some time. - Related Data Previous Rx's Medication Instructions Recorded EPINEPHrine (Auto Inject) [Epipen] 0.3 mg IM ONCE PRN #1 each 11/09/24 Albuterol Inhaler [Ventolin Hfa 1 - 2 puff INHALATION Q6H PRN #1 11/19/24 Inhaler] each Ibuprofen [Motrin] 600 mg PO Q6HR PRN tab 01/18/25 Nicotine 14Mg/24Hr Patch [Habitrol] 1 patch TRANSDERM DAILY 14 Days 01/18/25 #14 patch Nicotine Gum (Polacrilex) 2 mg BUCCAL Q4HR PRN pieceofgum 01/18/25 [Nicorette] diphenhydrAMINE [Benadryl] 50 mg PO QID PRN #20 capsule 01/18/25 risperiDONE [Uzedy] 100 mg SQ QMONTHLY #1 each 01/18/25 traZODone HCL [Desyrel] 100 mg PO HS PRN 30 Days #30 tab 01/18/25 Allergies Allergy/AdvReac Type Severity Reaction Status Date / Time aripiprazole [From Abilify] Allergy Anaphylaxis Verified 01/19/25 18:49 asenapine [From Saphris] Allergy Anaphylaxis Verified 01/19/25 18:49 clonazepam Allergy Anaphylaxis Verified 01/19/25 18:49 clonidine Allergy Anaphylaxis Verified 01/19/25 18:49 risperidone Allergy Unknown Verified 01/19/25 18:49 olanzapine [From Zyprexa] AdvReac Weight Gain Verified 01/19/25 18:49 blackened fish AdvReac Unknown Uncoded 01/19/25 18:49 Review of Systems ROS Statement: Those systems with pertinent positive or pertinent negative responses have been documented in the HPI. ROS Other: All systems not noted in ROS Statement are negative. Past Medical History Past Medical History: Asthma History of Any Multi-Drug Resistant Organisms: None Reported Past Surgical History: No Surgical Hx Reported Past Anesthesia/Blood Transfusion Reactions: No Reported Reaction Past Psychological History: ADD/ADHD, Anxiety, Depression Smoking Status: Current every day smoker, Vaper Past Alcohol Use History: None Reported Past Drug Use History: None Reported - Past Family History Father Family Medical History: Unable to Obtain Mother Family Medical History: Unable to Obtain General Exam Limitations: no limitations General appearance: alert, in no apparent distress Head exam: Present: atraumatic, normocephalic Eye exam: Present: normal appearance, PERRL, EOMI ENT exam: Present: normal oropharynx, other (Normal tongue no signs of swelling) Respiratory exam: Present: normal lung sounds bilaterally. Absent: respiratory distress, wheezes, rales, rhonchi Cardiovascular Exam: Present: regular rate, normal rhythm Neurological exam: Present: alert, oriented X3, CN II-XII intact, motor sensory deficit Psychiatric exam: Present: flat affect Skin exam: Present: warm, dry, intact. Absent: rash Course Vital Signs 01/19/25 18:44 Temperature 98.7 F Pulse Rate 95 Respiratory 15 Rate O2 Sat by Pulse 98 Oximetry Medical Decision Making - Medical Decision Making Was pt. sent in by a medical professional or institution ([facility] Willoughby, OPEN END SPINNING OPERATOR, urgent care, hospital, or half-way...) When possible be specific @ -No Did you speak to anyone other than the patient for history (EMS, parent, family, police, friend...)? What history was obtained from this source @ -No Did you review nursing and triage notes (agree or disagree)? Why? @ -I reviewed and agree with nursing and triage notes Were old charts reviewed (outside hosp., previous admission, EMS record, old EKG, old radiological studies, urgent care reports/EKG's, half-way records)? Report findings @ -No old charts were reviewed Differential Diagnosis possible allergic reaction to medication EKG interpreted by me (3pts min.). @ -As above X-rays interpreted by me (1pt min.). @ -None done CT interpreted by me (1pt min.). @ -None done U/S interpreted by me (1pt. min.). @ -None done What testing was considered but not performed or refused? (CT, X-rays, U/S, labs )? Why? @ -None What meds were considered but not given or refused? Why? @ -None Did you discuss the management of the patient with other professionals (professionals i.e. , PA, OPEN END SPINNING OPERATOR, lab, RT, psych nurse, social media assistant, jewelry polisher, teacher, fire officer, caser)? Give summary @ -No Was smoking cessation discussed for >3mins.? @ -No Was critical care preformed (if so, how long)? @ -No Were there social determinants of health that impacted care today? How? (Homelessness, low income, unemployed, alcoholism, drug addiction, transportation, low edu. Level, literacy, decrease access to med. care, [facility], rehab)? @ -No Was there de-escalation of care discussed even if they declined (Discuss DNR or withdrawal of care, Hospice)? DNR status @ -No What co-morbidities impacted this encounter? (DM, HTN, Smoking, COPD, CAD, Cancer, CVA, ARF, Chemo, Hep., AIDS, mental health diagnosis, sleep apnea, morbid obesity)? @ -Schizophrenia Was patient admitted / discharged? Hospital course, mention meds given and route, prescriptions, significant lab abnormalities, going to OR and other pertinent info. @ -24-year-old male with reported possibility of allergic reaction. There is no objective signs of allergic reaction. The patient has no tongue or uvular swelling. There is no rash. There is no wheezing. No vomiting. Vital signs are stable. This was a shot that was given 2 days ago which the patient believes he is allergic to. He had been given Benadryl by paramedics. I do not see any early other emergency at this time. Stable for discharge. Undiagnosed new problem with uncertain prognosis? @ -No Drug Therapy requiring intensive monitoring for toxicity (Heparin, Nitro, Insulin, Cardizem)? @ -No Were any procedures done? @ -No Diagnosis/symptom? @ -Possible allergic reaction, resolved Acute, or Chronic, or Acute on Chronic? @ -Acute on chronic Uncomplicated (without systemic symptoms) or Complicated (systemic symptoms)? @ -Default Side effects of treatment? @ -No Exacerbation, Progression, or Severe Exacerbation? @ -No Poses a threat to life or bodily function? How? (Chest pain, [place], [place], pneumonia, PE, COPD, DKA, ARF, appy, cholecystitis, CVA, Diverticulitis, Homicidal, Suicidal, threat to staff... and all critical care pts) @ -Low risk at this time Disposition Clinical Impression: Factitious illness Disposition: HOME SELF-CARE Condition: Fair Instructions (If sedation given, give patient instructions): Schizophrenia (ED) Is patient prescribed a controlled substance at d/c from ED?: No Referrals: None,Stated [Primary Care Provider] - 1-2 days Time of Disposition: 18:54
[2025-01-19 19:10] VITALS: BP 121/83; PULSE 85; RESP 18; TEMP 98
== END 2025-01-19 19:10 | disposition home or self-care (01) ==
LOC: EC 18:36
DX: F68.10 Factitious disorder imposed on self, unspecified (principal); F20.0 Paranoid schizophrenia; F17.290 Nicotine dependence, other tobacco product, uncomplicated; Z91.013 Allergy to seafood; Z88.8 Allergy status to other drugs, medicaments and biological substances
CPT/HCPCS: 99285

== ENCOUNTER 2025-01-20 14:13 | Emergency (ER) | payer OTHER ==
[2025-01-20 14:19] VITALS: BP 136/87; TEMP 97.9
--- NOTE | 2025-01-20 14:33 | ED ---
General Adult HPI - General Chief complaint: Allergic Reaction Stated complaint: allergic reaction Time Seen by Provider: 01/20/25 14:22 Source: patient (And friends), RN notes reviewed Mode of arrival: ambulatory Limitations: no limitations - History of Present Illness Initial comments: Patient is a 24-year-old male presenting to the emergency department with concern for allergic reaction to risperidone. Patient was recently in the psychiatric unit for depression. Patient did receive injection of risperidone, patient just discharged a couple of days ago. Patient states he was having some problems in the hospital and IV Benadryl did help. Friends are concerned that patient has had some difficulty with talking and difficulty with moving his l egs. Patient may be a little bit confused. Patient is in agreement with this. - Related Data Previous Rx's Medication Instructions Recorded EPINEPHrine (Auto Inject) [Epipen] 0.3 mg IM ONCE PRN #1 each 11/09/24 Albuterol Inhaler [Ventolin Hfa 1 - 2 puff INHALATION Q6H PRN #1 11/19/24 Inhaler] each Ibuprofen [Motrin] 600 mg PO Q6HR PRN tab 01/18/25 Nicotine 14Mg/24Hr Patch [Habitrol] 1 patch TRANSDERM DAILY 14 Days 01/18/25 #14 patch Nicotine Gum (Polacrilex) 2 mg BUCCAL Q4HR PRN pieceofgum 01/18/25 [Nicorette] diphenhydrAMINE [Benadryl] 50 mg PO QID PRN #20 capsule 01/18/25 risperiDONE [Uzedy] 100 mg SQ QMONTHLY #1 each 01/18/25 traZODone HCL [Desyrel] 100 mg PO HS PRN 30 Days #30 tab 01/18/25 Allergies Allergy/AdvReac Type Severity Reaction Status Date / Time aripiprazole [From Abilify] Allergy Anaphylaxis Verified 01/20/25 14:19 asenapine [From Saphris] Allergy Anaphylaxis Verified 01/20/25 14:19 clonazepam Allergy Anaphylaxis Verified 01/20/25 14:19 clonidine Allergy Anaphylaxis Verified 01/20/25 14:19 risperidone Allergy Unknown Verified 01/20/25 14:19 olanzapine [From Zyprexa] AdvReac Weight Gain Verified 01/20/25 14:19 blackened fish AdvReac Unknown Uncoded 01/20/25 14:19 Review of Systems ROS Statement: Those systems with pertinent positive or pertinent negative responses have been documented in the HPI. ROS Other: All systems not noted in ROS Statement are negative. Constitutional: Denies: fever Eyes: Denies: eye pain ENT: Reports: as per HPI. Denies: ear pain Respiratory: Denies: dyspnea Cardiovascular: Denies: chest pain Gastrointestinal: Denies: abdominal pain Past Medical History Past Medical History: Asthma History of Any Multi-Drug Resistant Organisms: None Reported Past Surgical History: No Surgical Hx Reported Past Anesthesia/Blood Transfusion Reactions: No Reported Reaction Past Psychological History: ADD/ADHD, Anxiety, Depression Smoking Status: Current every day smoker, Vaper Past Alcohol Use History: None Reported Past Drug Use History: None Reported - Past Family History Father Family Medical History: Unable to Obtain Mother Family Medical History: Unable to Obtain General Exam Limitations: no limitations General appearance: alert, in no apparent distress Head exam: Present: normocephalic Eye exam: Present: normal appearance, PERRL, EOMI ENT exam: Present: normal oropharynx, other ( patient does have some dysarthria. No angioedema.) Neck exam: Present: normal inspection Respiratory exam: Present: normal lung sounds bilaterally Cardiovascular Exam: Present: regular rate, normal rhythm GI/Abdominal exam: Present: soft. Absent: tenderness Extremities exam: Present: normal inspection Neurological exam: Present: alert, oriented X3, CN II-XII intact. Absent: motor sensory deficit Expanded Neurological exam: Present: protecting the airway, other (Patient does have some dysarthria) Cranial nerves: EOM's Intact: Normal Cerebellar function: Finger to Nose: Normal Motor strength exam: RUE: 5, LUE: 5, RLE: 5, LLE: 5 Eye Response: (4) open spontaneously Motor Response: (6) obeys commands Verbal Response: (5) oriented Psychiatric exam: Present: normal affect, normal mood Skin exam: Present: normal color Course Vital Signs 01/20/25 14:17 Temperature 97.9 F Pulse Rate 113 H Respiratory 20 Rate Blood Pressure 136/87 O2 Sat by Pulse 99 Oximetry Medical Decision Making - Medical Decision Making Was pt. sent in by a medical professional or institution (, [place], [facility], urgent care, hospital, or snf...) When possible be specific @ -No Did you speak to anyone other than the patient for history (EMS, parent, family, police, friend...)? What history was obtained from this source @ -Patient's friends are present to help provide history of patient's symptoms Did you review nursing and triage notes (agree or disagree)? Why? @ -I reviewed and agree with nursing and triage notes Were old charts reviewed (outside hosp., previous admission, EMS record, old EKG, old radiological studies, urgent care reports/EKG's, snf records)? Report findings @ -No old charts were reviewed Differential Diagnosis (chest pain, altered mental status, abdominal pain women, abdominal pain men, vaginal bleeding, weakness, fever, dyspnea, syncope, headache, dizziness, GI bleed, back pain, seizure, CVA, palpatations, mental health, musculoskeletal)? @ -Differential Weakness: Hypoglycemia, shock, sepsis, hyponatremia, anemia, infection, CO, ETOH, adverse medicine reaction, overdose, stroke, this is not meant to be an all-inclusive list. EKG interpreted by me (3pts min.). @ -As above X-rays interpreted by me (1pt min.). @ -None done CT interpreted by me (1pt min.). @ -None done U/S interpreted by me (1pt. min.). @ -None done What testing was considered but not performed or refused? (CT, X-rays, U/S, labs)? Why? @ -None What meds were considered but not given or refused? Why? @ -None Did you discuss the management of the patient with other professionals (professionals i.e. , PA, [facility], lab, RT, psych nurse, social work msw, return checker, teacher, amphibious operations officer, residential case manager)? Give summary @ -No Was smoking cessation discussed for >3mins.? @ -No Was critical care preformed (if so, how long)? @ -No Were there social determinants of health that impacted care today? How? (Homelessness, low income, unemployed, alcoholism, drug addiction, transportation, low edu. Level, literacy, decrease access to med. care, [facility], rehab)? @ -No Was there de-escalation of care discussed even if they declined (Discuss DNR or withdrawal of care, Hospice)? DNR status @ -No What co-morbidities impacted this encounter? (DM, HTN, Smoking, COPD, CAD, Cancer, CVA, ARF, Chemo, Hep., AIDS, mental health diagnosis, sleep apnea, morbid obesity)? @ -None Was patient admitted / discharged? Hospital course, mention meds given and route, prescriptions, significant lab abnormalities, going to OR and other pertinent info. @ -Patient presents with dystonic symptoms following risperidone injection that he has had similar symptoms previously. Patient did have improvement with Benadryl in the hospital and was provided this again. Patient reevaluated and resting comfortably in bed. No speech abnormality. Patient states he was able to get up and ambulate without any difficulty. Patient is comfortable with discharge home. Patient states he does have a prescription for Benadryl that he will go get filled and use if needed. Patient is advised he could return if he needs to. Undiagnosed new problem with uncertain prognosis? @ -No Drug Therapy requiring intensive monitoring for toxicity (Heparin, Nitro, Insulin, Cardizem)? @ -No Were any procedures done? @ -No Diagnosis/symptom? @ -Dystonic reaction Acute, or Chronic, or Acute on Chronic? @ -Acute Uncomplicated (without systemic symptoms) or Complicated (systemic symptoms)? @ -Default Side effects of treatment? @ -No Exacerbation, Progression, or Severe Exacerbation? @ -No Poses a threat to life or bodily function? How? (Chest pain, USA, CO, pneumonia, PE, COPD, DKA, ARF, appy, cholecystitis, CVA, Diverticulitis, Homicidal, Suicidal, threat to staff... and all critical care pts) @ -No - Lab Data Result diagrams: 01/20/25 14:44 01/20/25 14:44 Lab Results 01/20/25 01/20/25 Range/Units 14:44 14:44 WBC 6.95 (4.50-10.00) 10*3/uL RBC 5.13 (4.40-5.60) 10*6/uL Hgb 15.5 (13.0-17.0) g/dL Hct 43.7 (39.6-50.0) % MCV 85.2 (80.0-97.0) fL MCH 30.2 (27.0-32.0) pg MCHC 35.5 (32.0-37.0) g/dL Plt Count 208 (140-440) 10*3/uL MPV 9.0 L (9.5-12.2) fL Immature Gran % (Auto) 0.3 % Neutrophils % 76.2 % Lymphocytes % 16.0 % Monocytes % 6.8 % Eosinophils % 0.6 % Basophils % 0.1 % Immature Gran # 0.02 (0.00-0.04) 10*3/uL Neutrophils # 5.30 (1.80-7.70) 10*3/uL Lymphocytes # 1.11 (0.90-5.00) 10*3/uL Monocytes # 0.47 (0.20-1.00) 10*3/uL Eosinophils # 0.04 (0.04-0.35) 10*3/uL Basophils # 0.01 (0.00-0.10) 10*3/uL Sodium 138 (137-145) mmol/L Potassium 4.0 (3.5-5.1) mmol/L Chloride 103 (98-107) mmol/L Carbon Dioxide 26 (22-30) mmol/L Anion Gap 9 mmol/L BUN 8 L (9-20) mg/dL Creatinine 0.71 (0.66-1.25) mg/dL Est GFR (CKD-EPI)AfAm >90 (>60 ml/min/1.73 sqM) Est GFR (CKD-EPI)NonAf >90 (>60 ml/min/1.73 sqM) Glucose 124 H (74-99) mg/dL Calcium 9.4 (8.4-10.2) mg/dL Total Bilirubin 0.6 (0.2-1.3) mg/dL AST 59 (17-59) U/L ALT 52 H (4-49) U/L Alkaline Phosphatase 57 (38-126) U/L Total Protein 7.3 (6.3-8.2) g/dL Albumin 4.8 (3.5-5.0) g/dL Disposition Clinical Impression: Dystonic drug reaction Disposition: HOME SELF-CARE Condition: Stable Instructions (If sedation given, give patient instructions): Allergies (ED) Additional Instructions: Continue Benadryl if needed for the next few days. Please do follow-up with your primary care physician in the next couple of days for recheck. Please do follow-up with your psychiatrist as directed. Return for thoughts of self-harm, difficulty with speech or muscle movement, any difficulty breathing, worsening symptoms or other concerns. Is patient prescribed a controlled substance at d/c from ED?: No Referrals: None,Stated [Primary Care Provider] - 1-2 days Forms: Area PCPs Time of Disposition: 15:27
[2025-01-20] MEDS: diphenhydrAMINE 50 MG/ML 1 ML VIAL IVP STA (14:47)
[2025-01-20] MEDS: SODIUM CHLORIDE 0.9% 1,000 ML IV STA (14:47)
[2025-01-20 14:55] LABS: Basophils # (A) 0.01 10*3/uL (0.00-0.10); Basophils % (A) 0.1 %; Eosinophils # (A) 0.04 10*3/uL (0.04-0.35); Eosinophils % (A) 0.6 %; HCT 43.7 % (39.6-50.0); HGB 15.5 g/dL (13.0-17.0); Lymphocytes # (A) 1.11 10*3/uL (0.90-5.00); Lymphocytes % (A) 16.0 %; MCH 30.2 pg (27.0-32.0); MCHC 35.5 g/dL (32.0-37.0); MCV 85.2 fL (80.0-97.0); Monocytes # (A) 0.47 10*3/uL (0.20-1.00); Monocytes % (A) 6.8 %; Neutrophils # (A) 5.30 10*3/uL (1.80-7.70); Neutrophils % (A) 76.2 %; Platelet Count 208 10*3/uL (140-440); RBC 5.13 10*6/uL (4.40-5.60); RDW 12.0 % (11.5-14.5); WBC 6.95 10*3/uL (4.50-10.00)
[2025-01-20 15:13] LABS: ALT 52 U/L (4-49); AST 59 U/L (17-59); African American GFR (CKD) >90 (>60 ml/min/1.73 sqM); Albumin 4.8 g/dL (3.5-5.0); Alkaline Phosphatase 57 U/L (38-126); Anion Gap 9 mmol/L; Blood Urea Nitrogen 8 mg/dL (9-20); Calcium 9.4 mg/dL (8.4-10.2); Carbon Dioxide 26 mmol/L (22-30); Chloride 103 mmol/L (98-107); Glucose 124 mg/dL (74-99); Non-African American GFR(CKD) >90 (>60 ml/min/1.73 sqM); Potassium 4.0 mmol/L (3.5-5.1); Sodium 138 mmol/L (137-145); Total Protein 7.3 g/dL (6.3-8.2)
[2025-01-20 15:36] VITALS: PULSE 98; RESP 16
== END 2025-01-20 15:36 | disposition home or self-care (01) ==
LOC: EC 14:13
DX: G24.09 Other drug induced dystonia (principal); T45.0X5A Adverse effect of antiallergic and antiemetic drugs, initial encounter; F17.290 Nicotine dependence, other tobacco product, uncomplicated; Z88.8 Allergy status to other drugs, medicaments and biological substances
CPT/HCPCS: 36415; 80053; 85025; 99283; 96374; 96361; J1200

== ENCOUNTER 2025-01-20 18:43 | Emergency (ER) | payer OTHER ==
[2025-01-20 18:46] VITALS: RESP 20
--- NOTE | 2025-01-20 19:00 | ED ---
General Adult HPI - General Chief complaint: Allergic Reaction Stated complaint: Allergic reaction Time Seen by Provider: 01/20/25 18:56 Source: patient, RN notes reviewed Mode of arrival: ambulatory Limitations: no limitations - History of Present Illness Initial comments: Is a 24-year-old male with history of asthma presenting for allergic reaction to medication. Patient endorses receiving injection of risperidone on 01/18/2025, having a "dystonic reaction". Patient was seen twice yesterday in this ER for the same issue and once today already, noting improvement with Benadryl at those times. Patient denies dyspnea, dysphagia, abdominal pain, N/V/D. Onset/Timin -: days(s) Location: mouth - Related Data Previous Rx's Medication Instructions Recorded EPINEPHrine (Auto Inject) [Epipen] 0.3 mg IM ONCE PRN #1 each 11/09/24 Albuterol Inhaler [Ventolin Hfa 1 - 2 puff INHALATION Q6H PRN #1 11/19/24 Inhaler] each Ibuprofen [Motrin] 600 mg PO Q6HR PRN tab 01/18/25 Nicotine 14Mg/24Hr Patch [Habitrol] 1 patch TRANSDERM DAILY 14 Days 01/18/25 #14 patch Nicotine Gum (Polacrilex) 2 mg BUCCAL Q4HR PRN pieceofgum 01/18/25 [Nicorette] diphenhydrAMINE [Benadryl] 50 mg PO QID PRN #20 capsule 01/18/25 risperiDONE [Uzedy] 100 mg SQ QMONTHLY #1 each 01/18/25 traZODone HCL [Desyrel] 100 mg PO HS PRN 30 Days #30 tab 01/18/25 diphenhydrAMINE [Benadryl] 50 mg PO QID PRN #20 capsule 01/20/25 Allergies Allergy/AdvReac Type Severity Reaction Status Date / Time aripiprazole [From Abilify] Allergy Anaphylaxis Verified 01/24/25 12:39 asenapine [From Saphris] Allergy Anaphylaxis Verified 01/24/25 12:39 clonazepam Allergy Anaphylaxis Verified 01/24/25 12:39 clonidine Allergy Anaphylaxis Verified 01/24/25 12:39 risperidone Allergy Unknown Verified 01/24/25 12:39 olanzapine [From Zyprexa] AdvReac Weight Gain Verified 01/24/25 12:39 blackened fish AdvReac Unknown Uncoded 01/22/25 19:07 Review of Systems ROS Statement: Those systems with pertinent positive or pertinent negative responses have been documented in the HPI. ROS Other: All systems not noted in ROS Statement are negative. Past Medical History Past Medical History: Asthma History of Any Multi-Drug Resistant Organisms: None Reported Past Surgical History: No Surgical Hx Reported Past Anesthesia/Blood Transfusion Reactions: No Reported Reaction Past Psychological History: ADD/ADHD, Anxiety, Depression Smoking Status: Current every day smoker, Vaper Past Alcohol Use History: None Reported Past Drug Use History: None Reported - Past Family History Father Family Medical History: Unable to Obtain Mother Family Medical History: Unable to Obtain General Exam Limitations: no limitations General appearance: alert, in no apparent distress Head exam: Present: atraumatic, normocephalic, normal inspection Eye exam: Present: normal appearance, PERRL, EOMI. Absent: scleral icterus, conjunctival injection, periorbital swelling ENT exam: Present: normal exam, normal oropharynx (Tongue not significantly enlarged), mucous membranes moist Neck exam: Present: normal inspection. Absent: tenderness, meningismus, lymphadenopathy Respiratory exam: Present: normal lung sounds bilaterally. Absent: respiratory distress, wheezes, rales, rhonchi, stridor, accessory muscle use, decreased breath sounds, prolonged expiratory Cardiovascular Exam: Present: regular rate, normal rhythm, normal heart sounds. Absent: systolic murmur, diastolic murmur, rubs, gallop, clicks GI/Abdominal exam: Present: soft, normal bowel sounds. Absent: distended, tenderness, guarding, rebound, rigid Extremities exam: Present: normal inspection, full ROM, normal capillary refill. Absent: tenderness, pedal edema, joint swelling, calf tenderness Back exam: Present: normal inspection Neurological exam: Present: alert, oriented X3, CN II-XII intact Psychiatric exam: Present: normal mood, flat affect. Absent: agitated, anxious, manic, homicidal ideation, suicidal ideation Skin exam: Present: warm, dry, intact, normal color. Absent: rash Course Vital Signs 01/20/25 01/20/25 18:44 20:42 Temperature 98 F 98.6 F Pulse Rate 110 H 96 Respiratory 20 20 Rate Blood Pressure 137/80 132/87 O2 Sat by Pulse 98 100 Oximetry Medical Decision Making - Medical Decision Making Was pt. sent in by a medical professional or institution (, [facility], [employer], urgent care, hospital, or fpc...) When possible be specific @ -No Did you speak to anyone other than the patient for history (EMS, parent, family, police, friend...)? What history was obtained from this source @ -No Did you review nursing and triage notes (agree or disagree)? Why? @ -I reviewed and agree with nursing and triage notes Were old charts reviewed (outside hosp., previous admission, EMS record, old EKG, old radiological studies, urgent care reports/EKG's, fpc records)? Report findings @ -No old charts were reviewed Differential Diagnosis (chest pain, altered mental status, abdominal pain women, abdominal pain men, vaginal bleeding, weakness, fever, dyspnea, syncope, headache, dizziness, GI bleed, back pain, seizure, CVA, palpatations, mental health, musculoskeletal)? @ -Differential Mental Health Depression, anxiety, bipolar, psychosis, schizophrenia, borderline personality, situational depression, adjustment disorder, behavioral disorder, brain tumor, malingering, substance abuse, encephalopathy, medication reaction, dementia, hypothyroidism, degenerative neurologic disorder, lupus.... This is not meant to be all-inclusive list EKG interpreted by me (3pts min.). @ -Not done X-rays interpreted by me (1pt min.). @ -None done CT interpreted by me (1pt min.). @ -None done U/S interpreted by me (1pt. min.). @ -None done What testing was considered but not performed or refused? (CT, X-rays, U/S, labs)? Why? @ -None What meds were considered but not given or refused? Why? @ -None Did you discuss the management of the patient with other professionals (professionals i.e. , [facility], [employer]ETER[employer]ARIAN, lab, RT, psych nurse, social service manager, deicer kit assembler, teacher, immigration services officer, lining caser)? Give summary @ -No Was smoking cessation discussed for >3mins.? @ -No Was critical care preformed (if so, how long)? @ -No Were there social determinants of health that impacted care today? How? (Homelessness, low income, unemployed, alcoholism, drug addiction, transportation, low edu. Level, literacy, decrease access to med. care, intermediate, rehab)? @ -No Was there de-escalation of care discussed even if they declined (Discuss DNR or withdrawal of care, Hospice)? DNR status @ -No What co-morbidities impacted this encounter? (DM, HTN, Smoking, COPD, CAD, Cancer, CVA, ARF, Chemo, Hep., AIDS, mental health diagnosis, sleep apnea, morbid obesity)? @ -None Was patient admitted / discharged? Hospital course, mention meds given and route, prescriptions, significant lab abnormalities, going to OR and other pertinent info. @ -Patient provided IM Benadryl with Benadryl sent to patient's pharmacy. Advise follow-up with PCP regarding ongoing management of neuroleptic medication. Continue Benadryl use every 4-6 hours as needed for any ongoing dystonia. Return to the ER if symptoms do not improve or worsen despite Benadryl use. Discussed patient with Dr. Pruitt. Undiagnosed new problem with uncertain prognosis? @ -No Drug Therapy requiring intensive monitoring for toxicity (Heparin, Nitro, Insulin, Cardizem)? @ -No Were any procedures done? @ -No Diagnosis/symptom? @ -Dystonic reaction Acute, or Chronic, or Acute on Chronic? @ -Acute Uncomplicated (without systemic symptoms) or Complicated (systemic symptoms)? @ -Uncomplicated Side effects of treatment? @ -No Exacerbation, Progression, or Severe Exacerbation? @ -No Poses a threat to life or bodily function? How? (Chest pain, USA, CO, pneumonia, PE, COPD, DKA, ARF, appy, cholecystitis, CVA, Diverticulitis, Homicidal, Suicidal, threat to staff... and all critical care pts) @ -No Disposition Clinical Impression: Dystonic drug reaction Disposition: HOME SELF-CARE Condition: Good Instructions (If sedation given, give patient instructions): Extrapyramidal Symptoms (ED) Additional Instructions: Take 1 tablet of Benadryl every 4-6 hours as needed for ongoing symptoms. Follow-up with PCP for ongoing management of medication reaction. Prescriptions: diphenhydrAMINE [Benadryl] 50 mg PO QID PRN #20 capsule PRN Reason: Allergic Reaction Is patient prescribed a controlled substance at d/c from ED?: No Referrals: None,Stated [Primary Care Provider] - 1-2 days Adolfo Robles MD [STAFF PHYSICIAN] - 1-2 days Time of Disposition: 19:00
[2025-01-20] MEDS: diphenhydrAMINE 50 MG/ML 1 ML VIAL IM STA (19:42)
[2025-01-20 20:43] VITALS: BP 132/87; PULSE 96; TEMP 98.6
== END 2025-01-20 20:43 | disposition home or self-care (01) ==
LOC: EC 18:43
DX: T50.905A Adverse effect of unspecified drugs, medicaments and biological substances, initial encounter (principal); F17.290 Nicotine dependence, other tobacco product, uncomplicated; Z91.013 Allergy to seafood; Z88.8 Allergy status to other drugs, medicaments and biological substances
CPT/HCPCS: 99283; 96372; J1200

== ENCOUNTER 2025-01-21 16:05 | Emergency (ER) | payer OTHER ==
[2025-01-21 16:15] VITALS: BP 126/83; PULSE 88; RESP 18; TEMP 98.3
--- NOTE | 2025-01-21 16:46 | ED ---
General Adult HPI - General Chief complaint: Recheck/Abnormal Lab/Rx Stated complaint: allergic reaction Time Seen by Provider: 01/21/25 16:10 Source: EMS, RN notes reviewed Mode of arrival: EMS Limitations: no limitations - History of Present Illness Initial comments: 24-year-old male presents to the emergency department for potential allergic reaction. Patient is concerned that he is allergic to his Risperdal. He notes that he feels like his tongue has been swollen. He has been seen multiple times for this. He is not having any muffled speech, difficulty breathing, rashes. Patient does report that he has not had any access to food or drink as he is homeless. - Related Data Previous Rx's Medication Instructions Recorded EPINEPHrine (Auto Inject) [Epipen] 0.3 mg IM ONCE PRN #1 each 11/09/24 Albuterol Inhaler [Ventolin Hfa 1 - 2 puff INHALATION Q6H PRN #1 11/19/24 Inhaler] each Ibuprofen [Motrin] 600 mg PO Q6HR PRN tab 01/18/25 Nicotine 14Mg/24Hr Patch [Habitrol] 1 patch TRANSDERM DAILY 14 Days 01/18/25 #14 patch Nicotine Gum (Polacrilex) 2 mg BUCCAL Q4HR PRN pieceofgum 01/18/25 [Nicorette] diphenhydrAMINE [Benadryl] 50 mg PO QID PRN #20 capsule 01/18/25 risperiDONE [Uzedy] 100 mg SQ QMONTHLY #1 each 01/18/25 traZODone HCL [Desyrel] 100 mg PO HS PRN 30 Days #30 tab 01/18/25 diphenhydrAMINE [Benadryl] 50 mg PO QID PRN #20 capsule 01/20/25 Allergies Allergy/AdvReac Type Severity Reaction Status Date / Time aripiprazole [From Abilify] Allergy Anaphylaxis Verified 01/24/25 12:39 asenapine [From Saphris] Allergy Anaphylaxis Verified 01/24/25 12:39 clonazepam Allergy Anaphylaxis Verified 01/24/25 12:39 clonidine Allergy Anaphylaxis Verified 01/24/25 12:39 risperidone Allergy Unknown Verified 01/24/25 12:39 olanzapine [From Zyprexa] AdvReac Weight Gain Verified 01/24/25 12:39 blackened fish AdvReac Unknown Uncoded 01/22/25 19:07 Review of Systems ROS Statement: Those systems with pertinent positive or pertinent negative responses have been documented in the HPI. ROS Other: All systems not noted in ROS Statement are negative. Past Medical History Past Medical History: Asthma History of Any Multi-Drug Resistant Organisms: None Reported Past Surgical History: No Surgical Hx Reported Past Anesthesia/Blood Transfusion Reactions: No Reported Reaction Past Psychological History: ADD/ADHD, Anxiety, Depression Smoking Status: Current every day smoker, Vaper Past Alcohol Use History: None Reported Past Drug Use History: None Reported - Past Family History Father Family Medical History: Unable to Obtain Mother Family Medical History: Unable to Obtain General Exam Limitations: no limitations General appearance: alert, in no apparent distress Head exam: Present: atraumatic, normocephalic, normal inspection Eye exam: Present: normal appearance, PERRL, EOMI. Absent: scleral icterus, conjunctival injection, periorbital swelling ENT exam: Present: normal oropharynx, mucous membranes dry. Absent: normal exam, TM's normal bilaterally (Bilateral unable to visualize due to cerumen), normal external ear exam Neck exam: Present: normal inspection, full ROM. Absent: tenderness, meningismus, lymphadenopathy Respiratory exam: Present: normal lung sounds bilaterally. Absent: respiratory distress, wheezes, rales, rhonchi, stridor Cardiovascular Exam: Present: regular rate, normal rhythm, normal heart sounds. Absent: systolic murmur, diastolic murmur, rubs, gallop, clicks Extremities exam: Present: normal inspection, full ROM, normal capillary refill. Absent: tenderness, pedal edema, joint swelling, calf tenderness Back exam: Present: normal inspection Neurological exam: Present: alert, oriented X3 Psychiatric exam: Present: normal affect, normal mood Skin exam: Present: warm, dry, intact, normal color. Absent: rash Course Vital Signs 01/21/25 16:07 Temperature 98.3 F Pulse Rate 88 Respiratory 18 Rate Blood Pressure 126/83 O2 Sat by Pulse 98 Oximetry Medical Decision Making - Medical Decision Making Was pt. sent in by a medical professional or institution (, PA, [employer], urgent care, hospital, or retirement...) When possible be specific @ -No Did you speak to anyone other than the patient for history (EMS, parent, family, police, friend...)? What history was obtained from this source @ -No Did you review nursing and triage notes (agree or disagree)? Why? @ -I reviewed and agree with nursing and triage notes Were old charts reviewed (outside hosp., previous admission, EMS record, old EKG, old radiological studies, urgent care reports/EKG's, retirement records)? Report findings @ -No old charts were reviewed Differential Diagnosis (chest pain, altered mental status, abdominal pain women, abdominal pain men, vaginal bleeding, weakness, fever, dyspnea, syncope, headache, dizziness, GI bleed, back pain, seizure, CVA, palpatations, mental health, musculoskeletal)? @ -Not applicable EKG interpreted by me (3pts min.). @ -None X-rays interpreted by me (1pt min.). @ -None done CT interpreted by me (1pt min.). @ -None done U/S interpreted by me (1pt. min.). @ -None done What testing was considered but not performed or refused? (CT, X-rays, U/S, labs)? Why? @ -None What meds were considered but not given or refused? Why? @ -None Did you discuss the management of the patient with other professionals (professionals i.e. , PA, [employer], lab, RT, psych nurse, social media senior associate, jboss developer, teacher, juvenile probation officer, pillowcase cutter)? Give summary @ -No Was smoking cessation discussed for >3mins.? @ -No Was critical care preformed (if so, how long)? @ -No Were there social determinants of health that impacted care today? How? ( Homelessness, low income, unemployed, alcoholism, drug addiction, transportation, low edu. Level, literacy, decrease access to med. care, [place] [facility], rehab)? @ -Homelessness Was there de-escalation of care discussed even if they declined (Discuss DNR or withdrawal of care, Hospice)? DNR status @ -No What co-morbidities impacted this encounter? (DM, HTN, Smoking, COPD, CAD, Cancer, CVA, ARF, Chemo, Hep., AIDS, mental health diagnosis, sleep apnea, morbid obesity)? @ -None Was patient admitted / discharged? Hospital course, mention meds given and route, prescriptions, significant lab abnormalities, going to OR and other pertinent info. @ -Discharge. Patient presents to the emergency department for evaluation of potential allergic reaction. At this time I did not believe the patient is having an allergic reaction. Patient did request food and water. Patient was given food and water and tolerated without issue. Patient will be discharged. He is understanding agreeable discharge plan. Patient stable at time of discharge. Patient was provided resources for shelters in his discharge paperwork. Case discussed with Dr. Diaz. Undiagnosed new problem with uncertain prognosis? @ -No Drug Therapy requiring intensive monitoring for toxicity (Heparin, Nitro, Insulin, Cardizem)? @ -No Were any procedures done? @ -No Diagnosis/symptom? @ -Homelessness Acute, or Chronic, or Acute on Chronic? @ -Acute Uncomplicated (without systemic symptoms) or Complicated (systemic symptoms)? @ -Uncomplicated Side effects of treatment? @ -No Exacerbation, Progression, or Severe Exacerbation? @ -No Poses a threat to life or bodily function? How? (Chest pain, [place], [place], pneumonia, PE, COPD, DKA, ARF, appy, cholecystitis, CVA, Diverticulitis, Homicidal, Suicidal, threat to staff... and all critical care pts) @ -No Disposition Clinical Impression: Homelessness Disposition: HOME SELF-CARE Condition: Stable Instructions (If sedation given, give patient instructions): General Allergic Reaction (ED) Additional Instructions: Please follow up with your doctor. Return to the emergency department for new or worsening symptoms. Is patient prescribed a controlled substance at d/c from ED?: No Referrals: None,Stated [Primary Care Provider] - 1-2 days Forms: [facility], [place] [facility], [facility], Area [facility]
== END 2025-01-21 17:59 | disposition home or self-care (01) ==
LOC: EC 16:05
DX: T78.40XA Allergy, unspecified, initial encounter (principal); F17.290 Nicotine dependence, other tobacco product, uncomplicated; Z59.00 Homelessness unspecified; Z91.013 Allergy to seafood; Z88.8 Allergy status to other drugs, medicaments and biological substances
CPT/HCPCS: 99283

== ENCOUNTER 2025-01-22 18:37 | Emergency (ER) | payer OTHER ==
[2025-01-22 19:07] VITALS: PULSE 86
--- NOTE | 2025-01-22 19:15 | ED ---
ENT HPI - General Chief complaint: ENT Stated complaint: Oral issue Time Seen by Provider: 01/22/25 18:41 Source: patient, RN notes reviewed Mode of arrival: ambulatory Limitations: no limitations - History of Present Illness Initial comments: This is a 24-year-old male who presents to the emergency department for concerns of an allergic reaction. Patient believes that he is allergic to his psychiatric medication. He is well-known to this emergency department for recurrent visits related to the same complaint. During some visits he states that this is related to his oral medication and other times he states that it is due to his IM medication. States that his tongue is swollen and tingly making it difficult to speak and swallow. However, when patient is not engaging with staff members he is noted to be conversing with other people without difficulty. Patient is also homeless and requesting something to eat and drink. - Related Data Previous Rx's Medication Instructions Recorded RX: EPINEPHrine (Auto Inject) 0.3 mg IM ONCE PRN #1 each 11/09/24 [Epipen] RX: Albuterol Inhaler [Ventolin 1 - 2 puff INHALATION Q6H PRN #1 11/19/24 Hfa Inhaler] each RX: Ibuprofen [Motrin] 600 mg PO Q6HR PRN tab 01/18/25 RX: Nicotine 14Mg/24Hr Patch 1 patch TRANSDERM DAILY 14 Days 01/18/25 [Habitrol] #14 patch RX: Nicotine Gum (Polacrilex) 2 mg BUCCAL Q4HR PRN pieceofgum 01/18/25 [Nicorette] RX: risperiDONE [Uzedy] 100 mg SQ QMONTHLY #1 each 01/18/25 RX: traZODone HCL [Desyrel] 100 mg PO HS PRN 30 Days #30 tab 01/18/25 diphenhydrAMINE [Benadryl] 50 mg PO QID PRN #20 capsule 01/18/25 RX: diphenhydrAMINE [Benadryl] 50 mg PO QID PRN #20 capsule 01/20/25 Allergies Allergy/AdvReac Type Severity Reaction Status Date / Time aripiprazole [From Abilify] Allergy Anaphylaxis Verified 01/22/25 19:07 asenapine [From Saphris] Allergy Anaphylaxis Verified 01/22/25 19:07 clonazepam Allergy Anaphylaxis Verified 01/22/25 19:07 clonidine Allergy Anaphylaxis Verified 01/22/25 19:07 risperidone Allergy Unknown Verified 01/22/25 19:07 olanzapine [From Zyprexa] AdvReac Weight Gain Verified 01/22/25 19:07 blackened fish AdvReac Unknown Uncoded 01/22/25 19:07 Review of Systems ROS Statement: Those systems with pertinent positive or pertinent negative responses have been documented in the HPI. ROS Other: All systems not noted in ROS Statement are negative. Past Medical History Past Medical History: Asthma History of Any Multi-Drug Resistant Organisms: None Reported Past Surgical History: No Surgical Hx Reported Past Anesthesia/Blood Transfusion Reactions: No Reported Reaction Past Psychological History: ADD/ADHD, Anxiety, Depression Smoking Status: Current every day smoker, Vaper Past Alcohol Use History: None Reported Past Drug Use History: None Reported - Past Family History Father Family Medical History: Unable to Obtain Mother Family Medical History: Unable to Obtain General Exam Limitations: no limitations General appearance: alert, in no apparent distress Head exam: Present: atraumatic, normocephalic, normal inspection ENT exam: Present: normal exam, normal oropharynx, mucous membranes moist Respiratory exam: Present: normal lung sounds bilaterally. Absent: respiratory distress, wheezes, rales, rhonchi, stridor Cardiovascular Exam: Present: regular rate, normal rhythm Neurological exam: Present: alert, oriented X3, CN II-XII intact Psychiatric exam: Present: normal affect, normal mood Skin exam: Present: warm, dry, intact, normal color. Absent: rash Course Vital Signs 01/22/25 01/22/25 19:05 19:39 Temperature 98.1 F 98.7 F Pulse Rate 86 86 Respiratory 20 18 Rate Blood Pressure 134/95 128/85 O2 Sat by Pulse 98 97 Oximetry Medical Decision Making - Medical Decision Making This is a 24-year-old male who presents to the emergency department for concerns of an allergic reaction. Was pt. sent in by a medical professional or institution? @ -No Did you speak to anyone other than the patient for history? @ -No Did you review nursing and triage notes? @ -Yes, and I agree, it is accurate with regards to the patient's symptoms. Were old charts reviewed? @ -No Differential Diagnosis? @ -Allergic reaction, panic attack, atopic dermatitis, contact dermatitis, sinusitis, pharyngitis, COVID, influenza, asthma exacerbation. This is not meant to be an all-inclusive list. EKG interpreted by me (3pts min.)? @ -Not obtained X-rays interpreted by me (1pt min.)? @ -Not obtained CT interpreted by me (1pt min.)? @ -Not obtained U/S interpreted by me (1pt. min.)? @ -Not obtained What testing was considered but not performed? (CT, X-rays, U/S, labs)? Why? @ -None What meds were considered but not given? Why? @ -None Did you discuss the management of the patient with other professionals? @ -No Did you reconcile home meds? @ -No Was smoking cessation discussed for >3mins.? @ -No Was critical care preformed (if so, how long)? @ -No Were there social determinants of health that impacted care today? How? (Homelessness, low income, unemployed, alcoholism, drug addiction, transportation, low edu. Level, literacy, decrease access to med. care, [facility], rehab)? @ -Homelessness, which is likely the main reason for his repeated visits. Was there de-escalation of care discussed even if they declined? (Discuss DNR or withdrawal of care, Hospice)? @ -No What co-morbidities impacted this encounter? (DM, HTN, Smoking, COPD, CAD, Cancer, CVA, Hep., AIDS, mental health diagnosis, sleep apnea, morbid obesity)? @ -Psychiatric illness Was patient admitted / discharged? @ -Discharged. Patient reports that he is allergic to his psychiatric medication with tongue swelling and difficulty speaking. However, oropharyngeal exam was entirely unremarkable and he was conversing without difficulty. Patient is homeless and has been presenting here daily also requesting something to eat and drink. This is likely the main reason for his visit. Patient provided with something to eat and drink and he was discharged home in stable condition. Case discussed with ED attending Dr. Diaz. Return precautions reviewed in depth, the patient is instructed to return to the emergency department with any new, worsening, or concerning symptoms. Patient verbalized understanding. Undiagnosed new problem with uncertain prognosis? @ -None Drug Therapy requiring intensive monitoring for toxicity (Heparin, Nitro, Insulin, Cardizem)? @ -None Were any procedures done? @ -None Diagnosis/symptom? @ -Factitious illness Acute, or Chronic, or Acute on Chronic? @ -Acute Uncomplicated (without systemic symptoms) or Complicated (systemic symptoms)? @ -Uncomplicated Side effects of treatment? @ -None Exacerbation, Progression, or Severe Exacerbation] @ -Not applicable Poses a threat to life or bodily function? @ -No Disposition Clinical Impression: Factitious illness, Allergic reaction Disposition: HOME SELF-CARE Additional Instructions: Return to the emergency department with any new, worsening, or concerning symptoms. Follow up with your primary care provider in 1-2 days. Is patient prescribed a controlled substance at d/c from ED?: No Referrals: None,Stated [Primary Care Provider] - 1-2 days Time of Disposition: 19:15
[2025-01-22 19:42] VITALS: BP 128/85; RESP 18; TEMP 98.7
[2025-01-22] MEDS: diphenhydrAMINE 50 MG/ML 1 ML VIAL IM STA (19:42)
== END 2025-01-22 19:47 | disposition home or self-care (01) ==
LOC: EC 18:37
DX: F68.10 Factitious disorder imposed on self, unspecified (principal); T50.905A Adverse effect of unspecified drugs, medicaments and biological substances, initial encounter; F17.290 Nicotine dependence, other tobacco product, uncomplicated; Z91.013 Allergy to seafood; Z88.8 Allergy status to other drugs, medicaments and biological substances
CPT/HCPCS: 99283; 96372; J1200

== ENCOUNTER 2025-01-24 12:34 | Emergency (ER) | payer OTHER ==
[2025-01-24 12:40] VITALS: BP 140/98; PULSE 87; RESP 16; TEMP 98.7
--- NOTE | 2025-01-24 13:14 | ED ---
Abdominal Pain HPI - General Chief Complaint: Abdominal Pain Stated Complaint: Abd pain Time Seen by Provider: 01/24/25 12:35 Source: EMS, RN notes reviewed, old records reviewed Mode of arrival: EMS Limitations: no limitations - History of Present Illness Initial Comments: This is a 24 male to ER for abdominal pain patient is known to our ER for psychi atric illness patient has daily visits for the past week plaints coming in by EMS today for abdominal pain. Patient is somnolent and sleeping during exam MD Complaint: abdominal pain -: days(s) Location: periumbilical Radiation: none Migration to: no migration Severity: moderate Severity scale (1-10): 4 Quality: cramping Consistency: constant Improves With: nothing Worsens With: nothing Associated Symptoms: nausea Treatments Prior to Arrival: other - Related Data Previous Rx's Medication Instructions Recorded EPINEPHrine (Auto Inject) [Epipen] 0.3 mg IM ONCE PRN #1 each 11/09/24 Albuterol Inhaler [Ventolin Hfa 1 - 2 puff INHALATION Q6H PRN #1 11/19/24 Inhaler] each Ibuprofen [Motrin] 600 mg PO Q6HR PRN tab 01/18/25 Nicotine 14Mg/24Hr Patch [Habitrol] 1 patch TRANSDERM DAILY 14 Days 01/18/25 #14 patch Nicotine Gum (Polacrilex) 2 mg BUCCAL Q4HR PRN pieceofgum 01/18/25 [Nicorette] diphenhydrAMINE [Benadryl] 50 mg PO QID PRN #20 capsule 01/18/25 risperiDONE [Uzedy] 100 mg SQ QMONTHLY #1 each 01/18/25 traZODone HCL [Desyrel] 100 mg PO HS PRN 30 Days #30 tab 01/18/25 diphenhydrAMINE [Benadryl] 50 mg PO QID PRN #20 capsule 01/20/25 Allergies Allergy/AdvReac Type Severity Reaction Status Date / Time aripiprazole [From Abilify] Allergy Anaphylaxis Verified 01/24/25 12:39 asenapine [From Saphris] Allergy Anaphylaxis Verified 01/24/25 12:39 clonazepam Allergy Anaphylaxis Verified 01/24/25 12:39 clonidine Allergy Anaphylaxis Verified 01/24/25 12:39 risperidone Allergy Unknown Verified 01/24/25 12:39 olanzapine [From Zyprexa] AdvReac Weight Gain Verified 01/24/25 12:39 blackened fish AdvReac Unknown Uncoded 01/22/25 19:07 Review of Systems ROS Statement: Those systems with pertinent positive or pertinent negative responses have been documented in the HPI. ROS Other: All systems not noted in ROS Statement are negative. Past Medical History Past Medical History: Asthma History of Any Multi-Drug Resistant Organisms: None Reported Past Surgical History: No Surgical Hx Reported Past Anesthesia/Blood Transfusion Reactions: No Reported Reaction Past Psychological History: ADD/ADHD, Anxiety, Depression Smoking Status: Current every day smoker, Vaper Past Alcohol Use History: None Reported Past Drug Use History: None Reported - Past Family History Father Family Medical History: Unable to Obtain Mother Family Medical History: Unable to Obtain General Exam Limitations: no limitations General appearance: alert, in no apparent distress Head exam: Present: atraumatic, normocephalic, normal inspection Eye exam: Present: normal appearance, PERRL, EOMI. Absent: scleral icterus, conjunctival injection, periorbital swelling ENT exam: Present: normal exam, mucous membranes moist Neck exam: Present: normal inspection. Absent: tenderness, meningismus, lymphadenopathy Respiratory exam: Present: normal lung sounds bilaterally. Absent: respiratory distress, wheezes, rales, rhonchi, stridor Cardiovascular Exam: Present: regular rate, normal rhythm, normal heart sounds. Absent: systolic murmur, diastolic murmur, rubs, gallop, clicks GI/Abdominal exam: Present: soft, normal bowel sounds. Absent: distended, tenderness, guarding, rebound, rigid Extremities exam: Present: normal inspection, full ROM, normal capillary refill. Absent: tenderness, pedal edema, joint swelling, calf tenderness Back exam: Present: normal inspection Neurological exam: Present: alert, oriented X3, CN II-XII intact Psychiatric exam: Present: normal affect, normal mood Skin exam: Present: warm, dry, intact, normal color. Absent: rash Course Vital Signs 01/24/25 12:35 Temperature 98.7 F Pulse Rate 87 Respiratory 16 Rate Blood Pressure 140/98 O2 Sat by Pulse 97 Oximetry - Reevaluation(s) Reevaluation #1: 01/24/25 14:52 Medical records reviewed Reevaluation #2: 01/24/25 14:52 Patient symptoms improved Reevaluation #3: 01/24/25 14:52 Patient informed of results and questions answered Reevaluation #4: Was pt. sent in by a medical professional or institution ([facility]YK[facility] Willoughby, [employer], urgent care, hospital, or senior care...) When possible be specific @ -no Did you speak to anyone other than the patient for history (EMS, parent, family, police, friend...)? What history was obtained from this source @ -no Did you review nursing and triage notes (agree or disagree)? Why? @ -agree Are old charts reviewed (outside hosp., previous admission, EMS record, old EKG, old radiological studies, urgent care reports/EKG's, senior care records)? Report findings @ -yes Differential Diagnosis (chest pain, altered mental status, abdominal pain women, abdominal pain men, vaginal bleeding, weakness, fever, dyspnea, syncope, hea dache, dizziness, GI bleed, back pain, seizure, CVA, palpatations, mental health, musculoskeletal)? @ -prior EKG interpreted by me (3pts min.). @ -no X-rays interpreted by me (1pt min.). @ -yes negative for acute disease CT interpreted by me (1pt min.). @ -no U/S interpreted by me (1pt. min.). @ -no What testing was considered but not performed or refused? (CT, X-rays, U/S, labs)? Why? @ -none What meds were considered but not given or refused? Why? @ -none Did you discuss the management of the patient with other professionals (professionals i.e. MAYKEL Willoughby, [employer], lab, RT, psych nurse, hospital social worker, neck pinner, teacher, truant officer, case operator)? Give summary @ -no Was smoking cessation discussed for >3mins.? @ -no Was critical care preformed (if so, how long)? @ -no Were there social determinants of health that impacted care today? How? (Homelessness, low income, unemployed, alcoholism, drug addiction, transportation, low edu. Level, literacy, decrease access to med. care, fpc, rehab)? @ -none Was there de-escalation of care discussed even if they declined (Discuss DNR or withdrawal of care, Hospice)? DNR status @ -no What co-morbidities impacted this encounter? (DM, HTN, Smoking, COPD, CAD, Cancer, CVA, ARF, Chemo, Hep., AIDS, mental health diagnosis, sleep apnea, mor bid obesity)? @ -none Was patient admitted / discharged? Hospital course, mention meds given and ro lalo, prescriptions, significant lab abnormalities, going to OR and other pertinent info. @ - 24 male to the ER for evaluation of abdominal pain with nausea no vomiting symptoms resolved patient feels well and can be discharged home Discharge abdominal pain Undiagnosed new problem with uncertain prognosis? @ -no Drug Therapy requiring intensive monitoring for toxicity (Heparin, Nitro, Insulin, Cardizem)? @ -no Were any procedures done? @ -no Diagnosis/symptom? @ - Acute, or Chronic, or Acute on Chronic? @ -Acute Uncomplicated (without systemic symptoms) or Complicated (systemic symptoms)? @ -Complicated Side effects of treatment? @ -no Exacerbation, Progression, or Severe Exacerbation? @ -exacerbation Poses a threat to life or bodily function? How? (Chest pain, USA, ID, pneumonia, PE, COPD, DKA, ARF, appy, cholecystitis, CVA, Diverticulitis, Homicidal, Suicidal, threat to staff... and all critical care pts) @ -no Reevaluation #5: Differential Abdominal Pain Men: Appendicitis, cholecystitis, diverticulosis, ischemic bowel, pancreatitis, hepatitis, UTI, gastroenteritis, AAA, incarcerated hernia, bowel obstruction, constipation, inflammatory bowel, hepatitis, peptic ulcer disease, splenic infarction, perforated viscus, testicular torsion, this is not meant to be an all-inclusive list Medical Decision Making - Medical Decision Making 24 male to the ER for evaluation of abdominal pain with nausea no vomiting symptoms resolved patient feels well and can be discharged home - Lab Data Result diagrams: 01/24/25 13:17 01/24/25 13:17 Lab Results 01/24/25 01/24/25 Range/Units 13:17 13:17 WBC 5.92 (4.50-10.00) 10*3/uL RBC 5.23 (4.40-5.60) 10*6/uL Hgb 15.7 (13.0-17.0) g/dL Hct 44.1 (39.6-50.0) % MCV 84.3 (80.0-97.0) fL MCH 30.0 (27.0-32.0) pg MCHC 35.6 (32.0-37.0) g/dL Plt Count 212 (140-440) 10*3/uL MPV 9.2 L (9.5-12.2) fL Immature Gran % (Auto) 0.2 % Neutrophils % 81.2 % Lymphocytes % 11.8 % Monocytes % 6.4 % Eosinophils % 0.2 % Basophils % 0.2 % Immature Gran # 0.01 (0.00-0.04) 10*3/uL Neutrophils # 4.81 (1.80-7.70) 10*3/uL Lymphocytes # 0.70 L (0.90-5.00) 10*3/uL Monocytes # 0.38 (0.20-1.00) 10*3/uL Eosinophils # 0.01 L (0.04-0.35) 10*3/uL Basophils # 0.01 (0.00-0.10) 10*3/uL Sodium 137 (137-145) mmol/L Potassium 4.2 (3.5-5.1) mmol/L Chloride 101 (98-107) mmol/L Carbon Dioxide 21 L (22-30) mmol/L Anion Gap 15 mmol/L BUN 7 L (9-20) mg/dL Creatinine 0.63 L (0.66-1.25) mg/dL Est GFR (CKD-EPI)AfAm >90 (>60 ml/min/1.73 sqM) Est GFR (CKD-EPI)NonAf >90 (>60 ml/min/1.73 sqM) Glucose 83 (74-99) mg/dL Calcium 9.5 (8.4-10.2) mg/dL Phosphorus 3.0 (2.5-4.5) mg/dL Magnesium 1.9 (1.6-2.3) mg/dL Total Bilirubin 0.7 (0.2-1.3) mg/dL AST 47 (17-59) U/L ALT 37 (4-49) U/L Alkaline Phosphatase 58 (38-126) U/L Total Protein 7.5 (6.3-8.2) g/dL Albumin 4.9 (3.5-5.0) g/dL Amylase 42 (30-110) U/L Lipase 25 (23-300) U/L - Radiology Data Radiology results: report reviewed (X-ray KUB negative for acute disease), image reviewed Disposition Clinical Impression: Abdominal pain Disposition: HOME SELF-CARE Condition: Good Instructions (If sedation given, give patient instructions): Abdominal Pain (ED) Is patient prescribed a controlled substance at d/c from ED?: No Referrals: None,Stated [Primary Care Provider] - 1-2 days Time of Disposition: 14:30
[2025-01-24 13:20] LABS: Basophils # (A) 0.01 10*3/uL (0.00-0.10); Basophils % (A) 0.2 %; Eosinophils # (A) 0.01 10*3/uL (0.04-0.35); Eosinophils % (A) 0.2 %; HCT 44.1 % (39.6-50.0); HGB 15.7 g/dL (13.0-17.0); Lymphocytes # (A) 0.70 10*3/uL (0.90-5.00); Lymphocytes % (A) 11.8 %; MCH 30.0 pg (27.0-32.0); MCHC 35.6 g/dL (32.0-37.0); MCV 84.3 fL (80.0-97.0); Monocytes # (A) 0.38 10*3/uL (0.20-1.00); Monocytes % (A) 6.4 %; Neutrophils # (A) 4.81 10*3/uL (1.80-7.70); Neutrophils % (A) 81.2 %; Platelet Count 212 10*3/uL (140-440); RBC 5.23 10*6/uL (4.40-5.60); RDW 11.9 % (11.5-14.5); WBC 5.92 10*3/uL (4.50-10.00)
[2025-01-24] MEDS: SODIUM CHLORIDE 0.9% 1,000 ML IV ONE (13:21)
[2025-01-24] MEDS: ONDANSETRON 4 MG/2 ML VIAL IVP STA (13:23)
[2025-01-24] MEDS: KETOROLAC 15 MG/ML 1 ML VIAL IVP STA (13:23)
[2025-01-24 13:33] LABS: ALT 37 U/L (4-49); AST 47 U/L (17-59); African American GFR (CKD) >90 (>60 ml/min/1.73 sqM); Albumin 4.9 g/dL (3.5-5.0); Alkaline Phosphatase 58 U/L (38-126); Amylase 42 U/L (30-110); Anion Gap 15 mmol/L; Blood Urea Nitrogen 7 mg/dL (9-20); Calcium 9.5 mg/dL (8.4-10.2); Carbon Dioxide 21 mmol/L (22-30); Chloride 101 mmol/L (98-107); Glucose 83 mg/dL (74-99); Lipase 25 U/L (23-300); Magnesium 1.9 mg/dL (1.6-2.3); Non-African American GFR(CKD) >90 (>60 ml/min/1.73 sqM); Potassium 4.2 mmol/L (3.5-5.1); Sodium 137 mmol/L (137-145); Total Protein 7.5 g/dL (6.3-8.2)
--- NOTE | 2025-01-24 13:37 | XR ---
EXAMINATION TYPE: XR KUB DATE OF EXAM: 01/24/2025 1:32 PM COMPARISON: None. CLINICAL INDICATION: Male, 24 years old with history of abdominal pain, TECHNIQUE: Single view of the abdomen. FINDINGS: Small bowel demonstrates no evidence for dilatation or air fluid levels. Gas and fecal material is seen in non-distended colon. No convincing evidence for pneumoperitoneum. No unusual calcifications. The lung bases are clear. The osseous structures are intact. IMPRESSION: 1. Overall nonobstructive bowel gas pattern. [facility], , 01/24/2025 1:35 PM
== END 2025-01-24 15:09 | disposition home or self-care (01) ==
LOC: EC 12:34
CPT/HCPCS: 36415; 74018; 80053; 82150; 83690; 83735; 84100; 85025; 96361; 96374; 96375; 99284